=== PATIENT | female | born 1940 | race Caucasian/White ===

== ENCOUNTER → 2017-07-12 | Day surgery (SDC) | payer OTHER ==
[2017-07-05 11:50] VITALS: BMI 39.0
--- NOTE | 2017-07-05 12:47 | PAT Medication Instructions ---
Service Date Jul 05, 2017. Current Home Medication List Albuterol Hfa (Ventolin Hfa), 2 PUFFS INH Q4H PRN for RN Alprazolam (Xanax), 0.25 MG PO BID PRN for RN Amlodipine (Norvasc), 5 MG PO QAM Calcium Acetate (Phoslo 667 Mg), 1 CAP PO WM Cholecalciferol (Vitamin D3), 1,000 UNITS PO QAM Clobetasol Propionate (Clobetasol Propionate Cream 0.05%), 1 APPLN EXT BID PRN for RN Fluoxetine (Prozac), 40 MG PO BID PRN for RN Furosemide (Lasix), 80 MG PO QAM Glipizide (Glipizide Er), 1 TAB PO QAM Home O2 Therapy (Oxygen), 3 LITERS NA CONT Levothyroxine Sodium (Levothyroxine Sodium), 1 TAB PO QAM Levothyroxine Sodium (Synthroid), 300 MCG PO QAM Nitroglycerin (Nitrostat), 0.4 MG UT PRN Ondansetron Hcl (Zofran), 4 MG PO DAILY PRN for N Pantoprazole (Protonix), 40 MG PO QAM Polyethylene Glycol 3350 (Miralax), 17 GM PO PRN Rosuvastatin Calcium (Crestor), 2.5 MG PO 3XWK Senna (Senna Lax), 8.6 MG PO BID PRN for PRN Triamcinolone Acet (Triamcinolone Acetonide), 1 APPLN TOP BID Urea (Urea Topical), 1 DOSE TOP DAILY PRN for RN Vitamin B Cmplx/Vitc/Folic Ac (Nephrocaps), 1 CAP PO QAM [Procrit], 1 DOSE INJ PRN Medication Instructions For Your Scheduled Surgery -Continue as directed: Home O2 Therapy (Oxygen), 3 LITERS NA CONT [Procrit], 1 DOSE INJ PRN Nitroglycerin (Nitrostat), 0.4 MG UT PRN - Hold the following medications 24 hours prior to surgery: Clobetasol Propionate (Clobetasol Propionate Cream 0.05%), 1 APPLN EXT BID PRN Triamcinolone Acet (Triamcinolone Acetonide), 1 APPLN TOP BID Urea (Urea Topical), 1 DOSE TOP DAILY PRN for RN - Hold the following medications the morning of surgery: Cholecalciferol (Vitamin D3), 1,000 UNITS PO QAM Calcium Acetate (Phoslo 667 Mg), 1 CAP PO WM Furosemide (Lasix), 80 MG PO QAM Glipizide (Glipizide Er), 1 TAB PO QAM Rosuvastatin Calcium (Crestor), 2.5 MG PO 3XWK (take Tuesday/Tuesday/Tuesday as usual) Polyethylene Glycol 3350 (Miralax), 17 GM PO PRN Senna (Senna Lax), 8.6 MG PO BID PRN for PRN Vitamin B Cmplx/Vitc/Folic Ac (Nephrocaps), 1 CAP PO QAM - Take the following medications the morning of surgery with a sip of water: Albuterol Hfa (Ventolin Hfa), 2 PUFFS INH Q4H PRN (use if needed, BRING WITH YOU DAY OF SURGERY) Alprazolam (Xanax), 0.25 MG PO BID PRN Amlodipine (Norvasc), 5 MG PO QAM Levothyroxine Sodium (Levothyroxine Sodium), 75MCG 1 TAB PO QAM Levothyroxine Sodium (Synthroid), 300 MCG PO QAM Ondansetron Hcl (Zofran), 4 MG PO DAILY PRN Pantoprazole (Protonix), 40 MG PO QAM Fluoxetine (Prozac), 40 MG PO BID PRN (if needed) - Take the following medications as scheduled the night before surgery: Fluoxetine (Prozac), 40 MG PO BID PRN (if needed) Alprazolam (Xanax), 0.25 MG PO BID PRN Albuterol Hfa (Ventolin Hfa), 2 PUFFS INH Q4H PRN If you have any questions please call us at [phone] or [phone] or [phone]
[2017-07-05 13:21] LABS: PARTIAL THROMBOPLASTIN RATIO 1.4; PROTHROMBIN TIME (PATIENT) 10.7 SECONDS (9.0-12.0)
[2017-07-05 13:23] LABS: BUN/CREATININE RATIO 7.7 (10-20); CREATININE 4.1 mg/dl (0.60-1.20); POTASSIUM 4.6 mmol/L (3.5-5.1)
[2017-07-05 13:33] LABS: BASO % 0.3 %; BASO ABS # 0.02 K/uL (0-0.2); COMPLETE YES; EOS % 4.4 %; HEMATOCRIT 32.5 % (37-47); IG% 0.2 %; LYMPH % 7.9 %; LYMPH ABS # 0.47 K/uL (1.2-3.4); MEAN CELL VOLUME 105.2 fL (80-100); MEAN CORPUSCULAR HEMOGLOBIN 31.4 pg (25-34); MEAN CORPUSCULAR HGB CONC 29.8 g/dl (32-36); MEAN PLATELET VOLUME 9.3 fL (7.4-10.4); MONO % 5.4 %; NEUT % 81.8 %; PLATELET COUNT 115 K/uL (130-400); RED BLOOD COUNT 3.09 M/uL (4.2-5.4); WHITE BLOOD COUNT 5.95 K/uL (4.8-10.8)
--- NOTE | 2017-07-05 13:38 | DIAGNOSTIC IMAGING REPORT ---
CHEST PREADMISSION(PA/LAT) CLINICAL HISTORY: PAT preoperative evaluation COMPARISON STUDY: 10/20/2015 FINDINGS: Interstitial change left base considered chronic. Pulmonary vasculature again somewhat prominent on a chronic basis. Mild cardiomegaly status post median sternotomy. IMPRESSION: Chronic and postoperative change. No acute process. The above report was generated using voice recognition software. It may contain grammatical, syntax or spelling errors. Electronically signed by: Trevor Camejo M.D. 07/05/2017 1:37 PM Dictated Date/Time: 07/05/2017 1:36 PM
[~2017-07-12] VITALS: Ht 160 cm; Wt 100.1 kg
[~2017-07-12] MED LIST: ALPR-411 PO; AMLO-110 PO; ATROPINE SULFATE 0.1 MG/ML 5ML SYR IV PRN; B-CO1CAP17 PO; BUPIVACAINE/EPINEPHRINE 0.5% MPF 1:200,000 30 ML VIAL ONE; CALC667C4 PO; CHOL1CAP57 PO; CLBCRM30 EXT; CLINDAMYCIN 600 MG/54 ML D5W IV SCH; EpHEDrine SULFATE INJ 50 MG/ML AMP IV PRN; FENTANYL CITRATE INJ 50 MCG/1 ML 2 ML VIAL ONE; FLUO40CA8 PO; FURO80TA63 PO; GELATIN SPONGE 12-7MM ONE; GLIP-199 PO; HEPARIN SOD (PORCINE) 1000 UNIT/ML 10 ML VIAL ONE; LEVO300T2 PO; LEVO75TA5 PO; LIDOCAINE HCL 1% 20 ML VIAL ONE; MIDAZOLAM HCL 1 MG/ML 2ML VIAL ONE; NITR0.4S UT; NURSING VERBAL MED ORDER ONE; ONDA4TAB46 PO; ONDANSETRON INJ 2 MG/ML 2 ML VIAL IV PRN; OXGN; OXYC-57 PO; OXYCODONE/ACETAMINOPHEN 5-325 TAB ONE; PANT1TAB48 PO; POLY335019 PO; PROCRIT INJ; PROPOFOL IV EMULSION 10 MG/ML 20 ML VIAL IV ONE; ROSU5TAB PO; SNK PO; SODIUM CHLORIDE 0.9% 1000ML 1,000 ML IV SCH; THROMBIN FOR SOLN 20000 UNIT KIT ONE; TRMCR515 TOP; VNTHFA/IN INH; [UNRECOGNIZED DRUG - CODE] TOP
--- NOTE | 2017-07-12 05:53 | History and Physical ---
History & Physical Date of Service Jul 12, 2017. History & Physical CC: End stage renal disease HPI: Mrs. Mccarthy states that she has had worsening renal function over the past 2 years and was recently told at a visit with her transfer engineer that she should probably have a fistula created in the likelihood that she will require dialysis sometime in the future. She had a left arm basilic vein fistula created and a transposition of the fistula. USN did show an area of stenosis and non maturation of the fistula. She is now admitted for a left upper arm prosthetic graft. She specifically denies headaches, fevers, chills, dizziness , chest pain, shortness of breath, hemoptysis, abdominal pain, nausea, vomiting , diarrhea, constipation, dysuria, hematuria, rest pain, claudication, nonhealing wounds or ulceration. She is currently wheelchair bound and does not ambulate so was not able to claudicate. ALLERGIES: INCLUDE ASPIRIN AND PENICILLIN. MEDICATIONS: Reconciled on the chart and include the following: acetaminophen/ hydrocodone, alprazolam, amlodipine, clobetasol, clopidogrel, fluoxetine, glipizide, levothyroxine, Nitrostat, ondansetron, pantoprazole, sodium polystyrene sulfonate, torsemide, triamcinolone topical, urea topical, and vitamin D3. PAST MEDICAL HISTORY: Positive for coronary artery disease, diabetes, carotid disease, kidney disease as well as hypothyroidism, gastroesophageal reflux disease, [place], anxiety. SURGICAL HISTORY: Positive for a section, cholecystectomy, back surgery, shoulder surgery, hysterectomy, coronary artery bypass graft x4, right carotid artery sten. FAMILY HISTORY: Positive for diabetes in her mother and father, heart disease in her sister. SOCIAL HISTORY: Positive for current history of tobacco use. The patient states she smokes 1 pack a day. She does not drink alcohol or do illicit drugs. REVIEW OF SYSTEMS: Positive for chronic fatigue and difficulty with ambulation as well as mild bilateral lower extremity edema and requiring oxygen on a daily regular basis, is negative for fevers, sweats, vision changes, photophobia, ear pain, sinus problems or sore throat, hemoptysis, cough, shortness of breath while on her usual oxygen. She denies chest pain or palpitations. She denies syncope, abdominal pain, nausea, vomiting, diarrhea, constipation, dysuria, hematuria, muscle weakness, headaches, dizziness, numbness or seizures. PHYSICAL EXAMINATION: Her vital signs today were as follows: Blood pressure 130/60 in the right arm, 138/62 in the left, heart rate of 74, oxygenation 95% on 2 liters. Constitutional: In general, the patient is a morbidly obese, chronically ill-appearing middle-aged female in no acute distress. She is non- ambulatory and is in a wheelchair. She does transfer. She is active, alert and oriented x4 with normal recent and remote memory. Her head is normocephalic and atraumatic. Her eyes are EOMI. Her ENIL exam demonstrates no hearing loss, rhinorrhea or pharyngeal erythema. Her neck is supple, nontender with the midline trachea without masses or crepitus. Her lung exam demonstrates no dyspnea. They are decreased throughout, but are clear to auscultation bilaterally. A cardiovascular exam demonstrates a nondisplaced apical impulse with a regular rate and rhythm without murmurs, lifts, heaves, thrills or gallops. Her peripheral pulses are full and equal in all extremities unless otherwise noted. Specifically, they are normal in her carotid, brachial, radial, and ulnar. Her femoral pulses are +2. Her distal pulses are +1. She has brisk capillary refill and no sign of distal ischemia. The patient demonstrates no bruits in her carotid, abdominal or femoral area. Abdomen is soft, nontender with normoactive bowel sounds in all 4 quadrants without guarding or rebound. There is no flank or CVA tenderness. Her musculoskeletal exam demonstrates normal tone and strength for age. Her bilateral upper extremities demonstrate no cyanosis, edema, varicosities or ulcers. The patient's bilateral lower extremities still demonstrate +1 pitting edema and skin changes consistent with chronic venous insufficiency. There are no ulcerations and no cyanosis or gangrene. Neurologically, the patient has grossly intact cranial nerves and grossly intact sensation. ASSESSMENT AND PLAN: End-stage renal disease, not on hemodialysis. PLAN: Patient is admitted for a left upper extremity prosthetic fistula creation. I have discussed the risks options and benefits of the procedure with the patient. The patient understands the risks options and benefits and agrees to the procedure.
[2017-07-12 09:53] VITALS: BP 119/55; PULSE 72; TEMP 36.5; O2SAT 94; Ht 160 cm; Wt 100.1 kg
--- NOTE | 2017-07-12 10:12 | History & Physical Bridge Note ---
H&P Re-Evaluation Bridge Note: I have examined the patient, reviewed the History & Physical and in the interval since the performance of the History & Physical I have noted the following changes of clinical significance: No changes noted
[2017-07-12 10:23] LABS: BUN/CREATININE RATIO 6.9 (10-20); CALCIUM 9.1 mg/dl (8.5-10.1); CREATININE 4.3 mg/dl (0.60-1.20); POTASSIUM 4.7 mmol/L (3.5-5.1)
--- NOTE | 2017-07-12 12:44 | [facility] Post Operative Brief Note ---
Immediate Operative Summary Operative Date Jul 12, 2017. Pre-Operative Diagnosis End-stage Renal Disease Post-Operative Diagnosis Same as preop Procedure(s) Performed Left Upper Extremity Prosthetic Arteriovenous Graft Surgeon Dr. Aaron Owner Manager Surgeon(s) Claritza Perrin MD Resident Estimated Blood Loss 40ML Findings good thrill Specimens None per surgeon Anesthesia MAC Complication(s) None Disposition Recovery Room / PACU
--- NOTE | 2017-07-12 12:49 | Discharge Instructions ---
Discharge Instructions Date of Service Jul 12, 2017. Visit Reason for Visit: End Stage Renal Disease -On Hemodialysis Discharge Discharge Diagnosis / Problem: End stage renal disease Discharge Goals Goal(s): Therapeutic intervention Activity Recommendations Activity Limitations: per Instructions/Follow-up section Anesthesia . Post Anesthesia Instructions: If you have had General Anesthesia or IV Sedation: * Do not drive today. * Resume driving when surgeon permits. * Do not make important decisions or sign legal documents today. * Call surgeon for: 1. Temperature elevations greater than 101 degrees F. 2. Uncontrollable pain. 3. Excessive bleeding. 4. Persistent nausea and vomiting. 5. Medication intolerance (nausea, vomiting or rash). * For nausea and vomiting use only clear liquids such as: tea, soda, bouillon until nausea subsides, then gradually increase diet as tolerated. * If you have any concerns or questions, call your surgeon's office. If physician is unavailable and it is an emergency, call 911 or go to the nearest emergency room. . Instructions / Follow-Up Instructions / Follow-Up Call [phone] to schedule a follow up appointment if one not already scheduled. ACTIVITY RECOMMENDATIONS: See Above SPECIAL CARE INSTRUCTIONS: Call your doctor if: * Temperature above 101 degrees * Pain not relieved by pain medicine ordered * There is increased drainage or redness from any incision * You have any unanswered questions or concerns. Diet Recommendations Recommended Home Diet: resume previous diet Procedures Procedures Performed: Left Upper Extremity Prosthetic Arteriovenous Graft Pending Studies Studies pending at discharge: no Medical Emergencies . Who to Call and When: Medical Emergencies: If at any time you feel your situation is an emergency, please call 911 immediately. . Non-Emergent Contact Non-Emergency issues call your: Surgeon . . "Provider Documentation" section prepared by Jonny Aaron. .
[2017-07-12] MEDS: FENTANYL CITRATE INJ 50 MCG/1 ML 2 ML VIAL IV PRN ×2 (13:14→13:25)
--- NOTE | 2017-07-12 13:41 | Anesthesiology Progress Note ---
Anesthesia Post Op Note Date & Time Jul 12, 2017 at 13:41 Vital Signs Pain Intensity: 4 Vital Signs Past 12 Hours Date Time Temp Pulse Resp B/P (MAP) Pulse Ox O2 Delivery O2 Flow Rate FiO2 07/12/17 13:35 77 15 119/41 92 Nasal Cannula 3 07/12/17 13:25 73 13 127/72 92 Nasal Cannula 3 07/12/17 13:15 76 20 134/52 95 Nasal Cannula 3 07/12/17 13:08 36.8 78 12 146/40 95 Nasal Cannula 4 07/12/17 09:53 36.5 72 18 119/55 (76) 94 Room Air Notes Mental Status: alert / awake / arousable, participated in evaluation Pt Amnestic to Procedure: Yes Nausea / Vomiting: adequately controlled Pain: adequately controlled Airway Patency, RR, SpO2: stable & adequate BP & HR: stable & adequate Hydration State: stable & adequate Anesthetic Complications: no major complications apparent
[2017-07-12 14:10] VITALS: BP 134/71; PULSE 77; TEMP 36.7; O2SAT 92
[2017-07-12 14:40] VITALS: BP 109/70; PULSE 78; O2SAT 96
[2017-07-12 15:10] VITALS: BP 133/61; PULSE 76; TEMP 36.9; O2SAT 94
--- NOTE | 2017-07-12 15:44 | OPERATIVE REPORT ---
DATE OF OPERATION: 07/12/2017 PREOPERATIVE DIAGNOSIS: End-stage renal disease on hemodialysis. POSTOPERATIVE DIAGNOSIS: Same. PROCEDURE: Left brachial axillary AV graft with 6 mm PTFE. SURGEON: Dr. Jonny Aaron. STORE PERSON: Dr. Laurie Perrin. ANESTHESIA: Local plus conscious sedation. FLUIDS: 300. ESTIMATED BLOOD LOSS: 40 mL. URINE OUTPUT: Not recorded. COMPLICATIONS: None apparent. CONDITION: Stable to PACU. INDICATIONS: Ms. Mccarthy is a 77-year-old female with end-stage renal disease on hemodialysis. She had a previous left brachiocephalic and brachiobasilic fistula that unfortunately fell. She presents today for placement of a left upper extremity AV graft. She was advised of the risk and benefits of the procedure and agreed to undergo the procedure. DESCRIPTION OF PROCEDURE: The patient was brought into the operative suite. She was prepped and draped in the usual fashion. A timeout occurred. Local was instilled over her brachial artery in her forearm just above her antecubital fossa. The brachial artery was then dissected out. Next, attention was turned to her upper arm. Local was instilled and incision was made in her proximal left upper arm and the axillary vein was identified and dissected out. Local was instilled in the upper arm and the tunneler was used to tunnel a 6 mm PTFE graft to both incisions. The venous anastomosis was performed first. Angled DeBakeys were applied to the proximal and distal axillary vein. An arteria was made with a #11 blade. The anastomosis was created using a running CV-6 suture. At this time, there was no significant backbleeding, so a 4-0 Paul balloon was passed distally. This passed easily through the anastomosis and eliane back easily. There was blood returned after drawback of the balloon. Next, attention was turned to the arterial anastomosis. An arteriotomy was made with an 11 blade and this was extended with Benton scissors. The graft was cut down to size and sewn in with a running CV-6 suture. This was inspected for hemostasis. A repair stitch was placed. Once this was placed in the graft, attention was turned to the venous anastomosis which was inspected for hemostasis. A repair suture was placed in the proximal end of this anastomosis. This was done with the 7-0 Prolene. There was a good thrill in the graft. The wounds were inspected for hemostasis. Once this was obtained, they were closed with 3-0 and 4-0 Vicryl suture. The patient was then transported to PACU in stable condition. She tolerated the procedure well. Dr. Jonny Aaron was present and scrubbed for the entirety of this case. I attest to the content of the Intraoperative Record and any orders documented therein. Any exceptions are noted below. I, Dr. Aaron was present and scrubbed for the entire procedure. CINDY
== END | disposition home or self-care (01) ==
LOC: C.ACU 09:20
PROVIDERS: ATTEND Surgery Vascular Surgery
DX: N18.6 End stage renal disease (principal); I25.10 Atherosclerotic heart disease of native coronary artery without angina pectoris; E11.9 Type 2 diabetes mellitus without complications; E03.9 Hypothyroidism, unspecified; K21.9 Gastro-esophageal reflux disease without esophagitis; F17.200 Nicotine dependence, unspecified, uncomplicated; I25.2 Old myocardial infarction; Z99.2 Dependence on renal dialysis; Z90.49 Acquired absence of other specified parts of digestive tract; Z90.710 Acquired absence of both cervix and uterus; Z83.3 Family history of diabetes mellitus; Z82.49 Family history of ischemic heart disease and other diseases of the circulatory system

== ENCOUNTER → 2017-08-18 | Day surgery (SDC) | payer OTHER ==
[~2017-08-18] VITALS: Ht 165.1 cm; Wt 100.0 kg
[~2017-08-18] MED LIST changes: -ATROPINE SULFATE 0.1 MG/ML 5ML SYR IV PRN; -BUPIVACAINE/EPINEPHRINE 0.5% MPF 1:200,000 30 ML VIAL ONE; -CLINDAMYCIN 600 MG/54 ML D5W IV SCH; -EpHEDrine SULFATE INJ 50 MG/ML AMP IV PRN; -FENTANYL CITRATE INJ 50 MCG/1 ML 2 ML VIAL ONE; -GELATIN SPONGE 12-7MM ONE; -HEPARIN SOD (PORCINE) 1000 UNIT/ML 10 ML VIAL ONE; -LIDOCAINE HCL 1% 20 ML VIAL ONE; -MIDAZOLAM HCL 1 MG/ML 2ML VIAL ONE; -NURSING VERBAL MED ORDER ONE; -ONDANSETRON INJ 2 MG/ML 2 ML VIAL IV PRN; -OXYCODONE/ACETAMINOPHEN 5-325 TAB ONE; -PROPOFOL IV EMULSION 10 MG/ML 20 ML VIAL IV ONE; -SODIUM CHLORIDE 0.9% 1000ML 1,000 ML IV SCH; -THROMBIN FOR SOLN 20000 UNIT KIT ONE
[2017-08-18 11:39] VITALS: BP 149/63; PULSE 77; TEMP 36.7; O2SAT 97; Ht 165.1 cm; Wt 100.0 kg
--- NOTE | 2017-08-18 12:59 | History and Physical ---
History & Physical Date of Service Aug 18, 2017. History & Physical CC: End stage renal disease, functioning fistula HPI: Mrs. Mccarthy states that she has had worsening renal function over the past 2 years and was recently told at a visit with her director operating room that she should probably have a fistula created in the likelihood that she will require dialysis sometime in the future. She had a left arm basilic vein fistula created and a transposition of the fistula. USN did show an area of stenosis and non maturation of the fistula. She then had a left upper arm graft placed. This is working nicely. She specifically denies headaches, fevers, chills, dizziness, chest pain, shortness of breath, hemoptysis, abdominal pain, nausea, vomiting, diarrhea, constipation, dysuria, hematuria, rest pain, claudication, nonhealing wounds or ulceration. She is currently wheelchair bound and does not ambulate so was not able to claudicate. ALLERGIES: INCLUDE ASPIRIN AND PENICILLIN. MEDICATIONS: Reconciled on the chart and include the following: acetaminophen/ hydrocodone, alprazolam, amlodipine, clobetasol, clopidogrel, fluoxetine, glipizide, levothyroxine, Nitrostat, ondansetron, pantoprazole, sodium polystyrene sulfonate, torsemide, triamcinolone topical, urea topical, and vitamin D3. PAST MEDICAL HISTORY: Positive for coronary artery disease, diabetes, carotid disease, kidney disease as well as hypothyroidism, gastroesophageal reflux disease, [place], anxiety. SURGICAL HISTORY: Positive for a section, cholecystectomy, back surgery, shoulder surgery, hysterectomy, coronary artery bypass graft x4, right carotid artery sten. FAMILY HISTORY: Positive for diabetes in her mother and father, heart disease in her sister. SOCIAL HISTORY: Positive for current history of tobacco use. The patient states she smokes 1 pack a day. She does not drink alcohol or do illicit drugs. REVIEW OF SYSTEMS: Positive for chronic fatigue and difficulty with ambulation as well as mild bilateral lower extremity edema and requiring oxygen on a daily regular basis, is negative for fevers, sweats, vision changes, photophobia, ear pain, sinus problems or sore throat, hemoptysis, cough, shortness of breath while on her usual oxygen. She denies chest pain or palpitations. She denies syncope, abdominal pain, nausea, vomiting, diarrhea, constipation, dysuria, hematuria, muscle weakness, headaches, dizziness, numbness or seizures. PHYSICAL EXAMINATION: Her vital signs today were as follows: Blood pressure 130/60 in the right arm, 138/62 in the left, heart rate of 74, oxygenation 95% on 2 liters. Constitutional: In general, the patient is a morbidly obese, chronically ill-appearing middle-aged female in no acute distress. She is non- ambulatory and is in a wheelchair. She does transfer. She is active, alert and oriented x4 with normal recent and remote memory. Her head is normocephalic and atraumatic. Her eyes are EOMI. Her ENIL exam demonstrates no hearing loss, rhinorrhea or pharyngeal erythema. Her neck is supple, nontender with the midline trachea without masses or crepitus. Her lung exam demonstrates no dyspnea. They are decreased throughout, but are clear to auscultation bilaterally. A cardiovascular exam demonstrates a nondisplaced apical impulse with a regular rate and rhythm without murmurs, lifts, heaves, thrills or gallops. Her peripheral pulses are full and equal in all extremities unless otherwise noted. Specifically, they are normal in her carotid, brachial, radial, and ulnar. Her femoral pulses are +2. Her distal pulses are +1. She has brisk capillary refill and no sign of distal ischemia. The patient demonstrates no bruits in her carotid, abdominal or femoral area. Abdomen is soft, nontender with normoactive bowel sounds in all 4 quadrants without guarding or rebound. There is no flank or CVA tenderness. Her musculoskeletal exam demonstrates normal tone and strength for age. Her bilateral upper extremities demonstrate no cyanosis, edema, varicosities or ulcers. Good thrill in left arm fistula. The patient's bilateral lower extremities still demonstrate +1 pitting edema and skin changes consistent with chronic venous insufficiency. There are no ulcerations and no cyanosis or gangrene. Neurologically, the patient has grossly intact cranial nerves and grossly intact sensation. ASSESSMENT AND PLAN: End-stage renal disease, functioning fistula PLAN: Patient is admitted for removal of her permcath. I have discussed the risks options and benefits of the procedure with the patient. The patient understands the risks options and benefits and agrees to the procedure.
== END | disposition home or self-care (01) ==
LOC: C.ACU 10:39
PROVIDERS: ATTEND Surgery Vascular Surgery
DX: E11.22 Type 2 diabetes mellitus with diabetic chronic kidney disease (principal); N18.6 End stage renal disease; Z99.2 Dependence on renal dialysis; I25.10 Atherosclerotic heart disease of native coronary artery without angina pectoris; I25.2 Old myocardial infarction; I65.21 Occlusion and stenosis of right carotid artery; E03.9 Hypothyroidism, unspecified; K21.9 Gastro-esophageal reflux disease without esophagitis; F41.9 Anxiety disorder, unspecified; F17.210 Nicotine dependence, cigarettes, uncomplicated; Z95.1 Presence of aortocoronary bypass graft; Z79.899 Other long term (current) drug therapy

== ENCOUNTER 2017-09-12 07:42 | Day surgery (SDC) | payer OTHER ==
[~2017-09-12] VITALS: Ht 165.1 cm; Wt 100.0 kg
--- NOTE | 2017-09-12 06:28 | History and Physical ---
History & Physical Date of Service Sep 12, 2017. History & Physical CC: End stage renal disease, functioning fistula HPI: Mrs. Mccarthy states that she has had worsening renal function over the past 2 years and was recently told at a visit with her shore hand dredge or barge that she should probably have a fistula created in the likelihood that she will require dialysis sometime in the future. She had a left arm basilic vein fistula created and a transposition of the fistula. USN did show an area of stenosis and non maturation of the fistula. She then had a left upper arm graft placed. This is working nicely. She specifically denies headaches, fevers, chills, dizziness, chest pain, shortness of breath, hemoptysis, abdominal pain, nausea, vomiting, diarrhea, constipation, dysuria, hematuria, rest pain, claudication, nonhealing wounds or ulceration. She is currently wheelchair bound and does not ambulate so was not able to claudicate. ALLERGIES: INCLUDE ASPIRIN AND PENICILLIN. MEDICATIONS: Reconciled on the chart and include the following: acetaminophen/ hydrocodone, alprazolam, amlodipine, clobetasol, clopidogrel, fluoxetine, glipizide, levothyroxine, Nitrostat, ondansetron, pantoprazole, sodium polystyrene sulfonate, torsemide, triamcinolone topical, urea topical, and vitamin D3. PAST MEDICAL HISTORY: Positive for coronary artery disease, diabetes, carotid disease, kidney disease as well as hypothyroidism, gastroesophageal reflux disease, [place], anxiety. SURGICAL HISTORY: Positive for a section, cholecystectomy, back surgery, shoulder surgery, hysterectomy, coronary artery bypass graft x4, right carotid artery sten. FAMILY HISTORY: Positive for diabetes in her mother and father, heart disease in her sister. SOCIAL HISTORY: Positive for current history of tobacco use. The patient states she smokes 1 pack a day. She does not drink alcohol or do illicit drugs. REVIEW OF SYSTEMS: Positive for chronic fatigue and difficulty with ambulation as well as mild bilateral lower extremity edema and requiring oxygen on a daily regular basis, is negative for fevers, sweats, vision changes, photophobia, ear pain, sinus problems or sore throat, hemoptysis, cough, shortness of breath while on her usual oxygen. She denies chest pain or palpitations. She denies syncope, abdominal pain, nausea, vomiting, diarrhea, constipation, dysuria, hematuria, muscle weakness, headaches, dizziness, numbness or seizures. PHYSICAL EXAMINATION: Her vital signs today were as follows: Blood pressure 130/60 in the right arm, 138/62 in the left, heart rate of 74, oxygenation 95% on 2 liters. Constitutional: In general, the patient is a morbidly obese, chronically ill-appearing middle-aged female in no acute distress. She is non- ambulatory and is in a wheelchair. She does transfer. She is active, alert and oriented x4 with normal recent and remote memory. Her head is normocephalic and atraumatic. Her eyes are EOMI. Her ENWI exam demonstrates no hearing loss, rhinorrhea or pharyngeal erythema. Her neck is supple, nontender with the midline trachea without masses or crepitus. Her lung exam demonstrates no dyspnea. They are decreased throughout, but are clear to auscultation bilaterally. A cardiovascular exam demonstrates a nondisplaced apical impulse with a regular rate and rhythm without murmurs, lifts, heaves, thrills or gallops. Her peripheral pulses are full and equal in all extremities unless otherwise noted. Specifically, they are normal in her carotid, brachial, radial, and ulnar. Her femoral pulses are +2. Her distal pulses are +1. She has brisk capillary refill and no sign of distal ischemia. The patient demonstrates no bruits in her carotid, abdominal or femoral area. Abdomen is soft, nontender with normoactive bowel sounds in all 4 quadrants without guarding or rebound. There is no flank or CVA tenderness. Her musculoskeletal exam demonstrates normal tone and strength for age. Her bilateral upper extremities demonstrate no cyanosis, edema, varicosities or ulcers. Good thrill in left arm fistula. The patient's bilateral lower extremities still demonstrate +1 pitting edema and skin changes consistent with chronic venous insufficiency. There are no ulcerations and no cyanosis or gangrene. Neurologically, the patient has grossly intact cranial nerves and grossly intact sensation. ASSESSMENT AND PLAN: End-stage renal disease, functioning fistula PLAN: Patient is admitted for removal of her permcath. I have discussed the risks options and benefits of the procedure with the patient. The patient understands the risks options and benefits and agrees to the procedure.
[2017-09-12 08:31] VITALS: BP 146/48; PULSE 69; TEMP 36.8; O2SAT 96; Ht 165.1 cm; Wt 100.0 kg
[2017-09-12] MEDS ORDERED: FENTANYL CITRATE INJ 50 MCG/1 ML 2 ML VIAL ONE (10:36)
[2017-09-12] MEDS ORDERED: LIDOCAINE HCL 1% 20 ML VIAL ONE (10:36)
[2017-09-12] MEDS ORDERED: MIDAZOLAM HCL 1 MG/ML 2ML VIAL ONE (10:36)
[2017-09-12] MEDS ORDERED: LIDOCAINE HCL 1% 20 ML VIAL SQ ONE (10:59)
--- NOTE | 2017-09-12 11:00 | [facility] Operative Report ---
Operative Report Operative Date Sep 12, 2017. Pre-Operative Diagnosis Functioning Fistula Post-Operative Diagnosis Same Procedure(s) Performed Removal of Perm Catheter Surgeon Dr. Aaron Director Of Global Marketing Surgeon(s) None Estimated Blood Loss 0 Findings catheter and cuff removed Specimens A: Explant Perm Catheter Anesthesia Local Complication(s) None Disposition Indications This is a 77-year-old female with a left internal jugular vein PermCath in place. Her fistula is functioning wel. Removal of the PermCath was recommended. I have discussed the risks options and benefits of the procedure with the patient. The patient understands the risks options and benefits and agrees to the procedure. Description of Procedure The patient was taken to the angio suite and placed in the supine position. The left side of the neck, chest wall and catheter were prepped and draped in a sterile manner. Local anesthesia was then accomplished. Using sharp and blunt dissection, the cuff of the permcath was freed up from the surrounding fibrous tissue. The permcath and cuff were completely removed. Pressure was then applied and adequate hemostasis was obtained. A sterile dressing was then applied. The patient left the angio suite in good condition and tolerated the procedure well. I attest to the content of the Intraoperative Record and any orders documented therein. Any exceptions are noted below.
--- NOTE | 2017-09-12 11:04 | Discharge Instructions ---
Discharge Instructions Date of Service Sep 12, 2017. Visit Reason for Visit: End Stage Renal Disease -Functioning Fistula Discharge Discharge Diagnosis / Problem: Functioning fistula Discharge Goals Goal(s): Therapeutic intervention Activity Recommendations Activity Limitations: per Instructions/Follow-up section Shower/Bathe: tomorrow Anesthesia . Post Anesthesia Instructions: If you have had General Anesthesia or IV Sedation: * Do not drive today. * Resume driving when surgeon permits. * Do not make important decisions or sign legal documents today. * Call surgeon for: 1. Temperature elevations greater than 101 degrees F. 2. Uncontrollable pain. 3. Excessive bleeding. 4. Persistent nausea and vomiting. 5. Medication intolerance (nausea, vomiting or rash). * For nausea and vomiting use only clear liquids such as: tea, soda, bouillon until nausea subsides, then gradually increase diet as tolerated. * If you have any concerns or questions, call your surgeon's office. If physician is unavailable and it is an emergency, call 911 or go to the nearest emergency room. . Instructions / Follow-Up Instructions / Follow-Up Call [phone] with any questions or concerns. May remove dressing tomorrow, replace if needed with gauze or band-aid May shower tomorrow SPECIAL CARE INSTRUCTIONS: Medications: * Continue to take your medications as directed. If you have been given a prescription for Plavix, please fill it immediately and take as directed. Incision Care: * Your puncture site may have some bruising and minor swelling for about one week. * You will have a small dressing covering your puncture site. You may remove the dressing after 24 hours and shower. You may let the warm soapy water run over it, but be sure to dry the puncture site well and keep it dry. * DO NOT IMMERSE THE INCISION IN A TUB/POOL/etc. UNTIL HEALED. * Puncture sites should be kept covered with a band-aid until it begins to heal. Restrictions: * Depending on whether you leg or arm was punctured to access the arteries, you will be required to lay flat, hold your arm still, or both, for about 4 hours after the procedure to prevent bleeding. * Limit your activity for the first 48 hours. You may walk and go up and down steps. Avoid excessive bending or movement at the puncture site. Possible Complications: * Excessive Swelling - after blood flow is improved you may notice increased swelling in the lower legs. This is a normal response. This usually depends on the amount of blockages in the leg, how long they have been there prior to your procedure and how much blood flow was restored. Elevating your legs will help to improve this. Please notify our office ([phone] ) if the swelling does not go away after lying in bed overnight. * Infection/Drainage/Bleeding - Drainage or bleeding from the puncture site should be minimal. If you have excessive bleeding or drainage, call our office ([phone]) right away. * Pain - You may experience some mild pain or soreness at your puncture site. If your pain does not improve, please contact our office ([phone]). Call your doctor and seek emergent treatment if you develop: * Temperature above 101 degrees * Any fever or chills * Any redness or purulent drainage from the puncture site * Any new dusky/blue colored toes or feet with coolness or sharp or aching pain. SKIN IRRITATION: * You may experience some redness and/or swelling in the area where radiation was administered. If any skin irritation occurs, please contact your family physician. FOLLOW UP VISIT: Keep any scheduled doctor appointments. Diet Recommendations Recommended Home Diet: resume previous diet Procedures Procedures Performed: Removal of Perm Catheter Pending Studies Studies pending at discharge: no Medical Emergencies . Who to Call and When: Medical Emergencies: If at any time you feel your situation is an emergency, please call 911 immediately. . Non-Emergent Contact Non-Emergency issues call your: Surgeon . . "Provider Documentation" section prepared by Jonny Aaron. .
[2017-09-12 11:10] VITALS: BP 166/71; PULSE 69; TEMP 36.7; O2SAT 96
[2017-09-12 11:25] VITALS: BP 175/68; PULSE 73; TEMP 36.7; O2SAT 93
== END 2017-09-12 11:40 | disposition home or self-care (01) ==
LOC: C.ACU 07:42
PROVIDERS: ATTEND Surgery Vascular Surgery
DX: N18.6 End stage renal disease (principal); E11.22 Type 2 diabetes mellitus with diabetic chronic kidney disease; Z99.2 Dependence on renal dialysis; I25.10 Atherosclerotic heart disease of native coronary artery without angina pectoris; I25.2 Old myocardial infarction; E03.9 Hypothyroidism, unspecified; F41.9 Anxiety disorder, unspecified; Z79.899 Other long term (current) drug therapy; F17.210 Nicotine dependence, cigarettes, uncomplicated

== ENCOUNTER 2019-11-23 23:31 | Inpatient (IN) ==
[2019-11-24 00:49] LABS: Eosinophils # (auto) 0.03 K/uL (0-0.5); Eosinophils % (auto) 0.3 %; Hematocrit (blood only) 34.1 % (37-47); Hemoglobin 10.9 g/dL (12.0-16.0); Immature Granulocytes # (auto) 0.04 K/uL (0.00-0.02); Immature Granulocytes % (auto) 0.4 %; Lymphocytes % (auto) 4.4 %; Mean Corpuscular Hemoglobin 31.1 pg (25-34); Mean Corpuscular Volume 97.2 fL (80-100); Mean Platelet Volume 10.7 fL (7.4-10.4); Monocytes # (auto) 0.47 K/uL (0.11-0.59); Monocytes % (auto) 5.2 %; Neutrophils # (auto) 8.15 K/uL (1.4-6.5); Neutrophils % (auto) 89.7 %; Platelet Count 129 K/uL (130-400); RDW Coefficient of Variation 18.2 % (11.5-14.5); RDW Standard Deviation 63.3 fL (36.4-46.3); Red Blood Count 3.51 M/uL (4.2-5.4); White Blood Count 9.09 K/uL (4.8-10.8)
[2019-11-24 00:57] LABS: Albumin Globulin Ratio 0.5 (0.9-2); Albumin Level 2.1 gm/dl (3.4-5.0); BUN Creatinine Ratio 12.1 (10-20); Bilirubin,Total 0.5 mg/dl (0.2-1); Calcium 7.1 mg/dl (8.5-10.1); Creatinine Clr Calc Pharmacy 9.2 ml/min; Est GFR (African American) 7.3; Est GFR (Non-African American) 6.3; Globulin 3.9 gm/dl (2.5-4.0); Magnesium 1.9 mg/dl (1.8-2.4); Potassium 3.9 mmol/L (3.5-5.1)
[2019-11-24] MEDS ORDERED: ALBUT/IPRATROP 3MG/0.5MG NEB 3 ML VIAL NEB STA (01:19)
[2019-11-24] MEDS ORDERED: HYDROmorphone INJ 0.5 MG/0.5 ML SYR IV STA ×2 (01:31→03:12)
[2019-11-24] MEDS ORDERED: FUROSEMIDE 40 MG/4 ML VIAL IV STA (01:31)
[2019-11-24] MEDS ORDERED: ERTAPENEM SODIUM 10 ML IV STA (01:33)
[2019-11-24] MEDS ORDERED: ISOSORBIDE MONO EXTENDED REL 30 MG TABCR PO ONE (02:16)
[2019-11-24] MEDS ORDERED: HydrALAZINE HCL 20 MG/ML VIAL IV ONE (02:41)
[2019-11-24 03:16] LABS: Thyroid Stimulating Hormone 1.61 uIu/ml (0.300-4.500)
--- NOTE | 2019-11-24 03:29 | History & Physical Report ---
Date of Service November 24, 2019 Assessment & Plan (1) Respiratory failure, acute and chronic: hx chronic respiratory failure secondary to COPD on home O2 Multifactorial : Fluid overload, recent PRBC transfusion, missed dialysis session, hx ESRD on HD Recurrent COPD exacerbation secondary to HCAP, possible aspiration, no sepsis (Recent confinement at [facility] for CF exacerbation secondary to flu pneumonia) chronic left hip pain, worsening with cough symptoms HTN, elevated secondary illness history CAD status post CABG, stent PVD status post surgery NAFLD cirrhosis as per records, no overt decompensation DM2 diet-controlled,well-controlled as of recent outpatient hemoglobin A1c of 4.29 April 2019 hypothyroidism, euthyroid as of today's TSH chronic anemia, hemoglobin at baseline recent PRBC posttransfusion chronic thrombocytopenia 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 Past tobacco abuse PCU Supplemental O2 Baseline ABG Nephrology consult RE dialysis management (ER provider already in touch hold recommends dialysis in a.m.) Lasix dosed for renal function, one-time dose in light of pulmonary congestion (patient still dribbles urine as per account) Ertapenem, nebs, steroid course for COPD exacerbation secondary to H CAP/possible aspiration Swallow eval, aspiration precautions Analgesia, Lidoderm patch for left hip pain given radiculopathy description Facilitate home BP meds, consider adding Norvasc if BP persistently elevated Basal insulin, ISS BG goal [id number], update hemoglobin A1c DVT prophylaxis. SCDs RE thrombocytopenia Full code Total critical care time was 45 minutes. History of Present Illness Chief Complaint: Worsening shortness of breath Primary Care Provider: Trey Guzman DO History obtained from patient and records. History somewhat limited due to patient hearing impairment. Medical history significant for chronic respiratory failure secondary to COPD on home O2, history CAD status post CABG, stent, PVD status post surgery, NAFLD cirrhosis as per records, DM2 diet-controlled, ESRD on HD, hypothyroidism, chronic anemia (baseline hemoglobin 8 ), chronic thrombocytopenia, anxiety/mood disorder, chronic left hip pain. Recent confinement [facility] last week for COPD exacerbation secondary to influenza A. Patient discharged to [facility] rehab facility 3 days ago. Outpatient hemoglobin noted to be 6 s/p PRBC transfusion upon arrival at rehab facility. As per patient, worsening shortness of breath since leaving [facility]. Junky cough symptoms, coughing with meals/water intake if she is not careful. No fever, no chills. Worsening left-sided hip pain going to the leg No unusual incontinence symptoms. Hemodialysis not completed yesterday morning due to infiltrated AV fistula site. Patient brought to the ER for worsening shortness of breath. Medical History as above Surgical History : CABG, vascular procedures, cholecystectomy, shoulder surgery, back surgery, LOUISA/BSO, section Family History : Personal/Social history : Allergies Allergy/AdvReac Type Severity Reaction Status Date / Time Penicillins Allergy Unknown SWELLING Verified 11/23/19 23:53 AT INJECTION SITE telithromycin Allergy Unknown reaction Verified 11/23/19 23:53 unknown aspirin AdvReac Unknown NAUSEATED Verified 11/23/19 23:53 WITH UNCOATED-COATED OKAY Food Allergy Unknown RAW Uncoded 11/23/19 23:53 [id number] OKAY Home Medications Home Medications Medication Instructions Recorded Confirmed Type acetaminophen 650 mg PO Q4H PRN 11/21/19 11/23/19 History acetylcysteine 3 ml INHALATION BID 11/21/19 11/23/19 History albuterol sulfate [Proventil HFA] 2 puff INHALATION Q4H PRN 11/21/19 11/23/19 History atorvastatin [Lipitor] 10 mg PO HS 11/21/19 11/23/19 History ergocalciferol (vitamin D2) 50,000 unit PO 2XWK 11/21/19 11/24/19 History fluticasone furoate-vilanterol 1 inh INHALATION DAILY 11/21/19 11/24/19 History [Breo Ellipta] heparin (porcine) 5,000 unit SUBCUT Q12H 11/21/19 11/24/19 History hydrocortisone [Proctozone-HC] 1 applic ND BID 11/21/19 11/24/19 History isosorbide mononitrate 30 mg PO DAILY 11/21/19 11/24/19 History prednisone 20 mg PO DAILY 11/21/19 11/24/19 History alprazolam 0.25 mg PO BID PRN 11/23/19 11/23/19 History bisacodyl 10 mg ND DAILY PRN 11/23/19 11/23/19 History calcium acetate 667 mg PO TIDM 11/23/19 11/24/19 History oxycodone-acetaminophen [Percocet] 1 tab PO Q8H PRN 11/23/19 11/23/19 History cholecalciferol (vitamin D3) 1,000 unit PO DAILY 11/24/19 11/24/19 History [Vitamin D3] clobetasol 1 applic TOPICAL BID 11/24/19 11/24/19 History darbepoetin gregoria in polysorbat 100 mcg SUBCUT DIRECTED 11/24/19 11/24/19 His tory docusate sodium 100 mg PO BID 11/24/19 11/24/19 History fluoxetine [Prozac] 40 mg PO DAILY 11/24/19 11/24/19 History levothyroxine 75 mcg PO DAILY 11/24/19 11/24/19 History levothyroxine 300 mcg PO DAILY 11/24/19 11/24/19 History lidocaine 1 applic TOPICAL DIRECTED 11/24/19 11/24/19 History multivitamin 1 tab PO DAILY 11/24/19 11/24/19 History nitroglycerin 0.4 mg SUBLINGUAL DIRECTED PRN 11/24/19 11/24/19 History ondansetron HCl [Zofran] 4 mg PO Q6H PRN 11/24/19 11/24/19 History pantoprazole 40 mg PO DAILY 11/24/19 11/24/19 History polyethylene glycol 3350 [Miralax] 17 g PO DAILY PRN 11/24/19 11/24/19 History roflumilast [Daliresp] 500 mcg PO DAILY 11/24/19 11/24/19 History rosuvastatin 2.5 mg PO DIRECTED 11/24/19 11/24/19 History sennosides-docusate sodium 1 tab-cap PO DIRECTED 11/24/19 11/24/19 History [Senokot-S] triamcinolone acetonide 1 applic TOPICAL BID 11/24/19 11/24/19 History urea 1 applic TOPICAL BID 11/24/19 11/24/19 History Past Med/Surg History Medical History Anxiety AV fistula left AV fistula CAD (coronary artery disease) COPD exacerbation Diabetes 1.5, managed as type 2 Encounter for insertion of venous access port ESRD (end stage renal disease) Dialysis patient GERD (gastroesophageal reflux disease) Hepatitis C chronic condition Hypertension goal is 140/90 Hypothyroidism Influenza A Diagnosed 11/13/2019 Mixed dyslipidemia Obesity, BMI not known Old myocardial infarction Oxygen dependent 2 liters nasal cannula Pneumonia Pt is unaware of this diagnosis. Info provided from [facility] Stress incontinence in female Tobacco abuse Surgical History H/O arthroscopy of shoulder Removal of object right shoulder H/O dilation and curettage H/O: Hx of cholecystectomy Hx of decompressive lumbar laminectomy S/P LOUISA-BSO Family History Other Family history non-contributory Social History Preferred Language: Wallisian Communication Ability: Effective Digital Sales Planner Required: No Beliefs That Will Affect Care: None Current Living Situation: Spouse Other Information That Helps Us Care for You: No Feels Safe at Home: Yes Safety Concerns: Feels Safe At This Time Smoking Status: Unknown if ever smoked Hx Alcohol Use: No Hx Substance Use: No Review of Systems Review of Systems: As per HPI, all 10 systems reviewed, all other ROS negative Physical Exam Physical Exam: GENERAL: uncomfortable, obese, respiratory distress SKIN: Pallor , warm HEENT: Pale palpebral conjunctivae, no ptosis, dry buccal mucosa, nasal cannula in place NECK : Supple, short neck, no tenderness CHEST : Decreased breath sounds, expiratory wheezes , no tenderness HEART : RRR, no obvious murmurs ABDOMEN: Some distention, nontender BACK : Left hip tenderness, negative straight leg raise test EXTREMITIES : Minimal LE swelling, no LE tenderness, no other conspicuous deformities noted NEUROLOGIC : Coherent, slightly hard of hearing, no facial asymmetry, no other gross focality Results & Data Vital Signs (Past 12 Hours) Vital Signs Temp Pulse Pulse Resp BP BP Pulse Ox 11/24/19 03:04 103 H 24 155/52 H 93 11/24/19 02:30 91 H 19 198/104 H 94 11/24/19 01:37 96 H 18 91 11/24/19 01:23 102 H 24 167/92 H 93 11/23/19 23:23 36.7 C 91 H 26 H 141/44 H 94 Laboratory Results Laboratory Results WBC 9.09 K/uL (4.8-10.8) 11/24/19 00:18 RBC 3.51 M/uL (4.2-5.4) L 11/24/19 00:18 Hgb 10.9 g/dL (12.0-16.0) L 11/24/19 00:18 Hct 34.1 % (37-47) L 11/24/19 00:18 MCV 97.2 fL (80-100) 11/24/19 00:18 MCH 31.1 pg (25-34) 11/24/19 00:18 MCHC 32.0 g/dL (32-36) 11/24/19 00:18 RDW Std Deviation 63.3 fL (36.4-46.3) H 11/24/19 00:18 RDW Coeff of Alvin 18.2 % (11.5-14.5) H 11/24/19 00:18 Plt Count 129 K/uL (130-400) L 11/24/19 00:18 MPV 10.7 fL (7.4-10.4) H 11/24/19 00:18 Immature Gran % (Auto) 0.4 % 11/24/19 00:18 Neut % (Auto) 89.7 % 11/24/19 00:18 Lymph % (Auto) 4.4 % 11/24/19 00:18 [place] % (Auto) 5.2 % 11/24/19 00:18 Eos % (Auto) 0.3 % 11/24/19 00:18 Baso % (Auto) 0.0 % 11/24/19 00:18 Immature Gran # (Auto) 0.04 K/uL (0.00-0.02) H 11/24/19 00:18 Neut # (Auto) 8.15 K/uL (1.4-6.5) H 11/24/19 00:18 Lymph # (Auto) 0.40 K/uL (1.2-3.4) L 11/24/19 00:18 [place] # (Auto) 0.47 K/uL (0.11-0.59) 11/24/19 00:18 Eos # (Auto) 0.03 K/uL (0-0.5) 11/24/19 00:18 Baso # (Auto) 0.00 K/uL (0-0.2) 11/24/19 00:18 Sodium 135 mmol/L (136-145) L 11/24/19 00:18 Potassium 3.9 mmol/L (3.5-5.1) 11/24/19 00:18 Chloride 103 mmol/L (98-107) 11/24/19 00:18 Carbon Dioxide 20 mmol/L (21-32) L 11/24/19 00:18 Anion Gap 12.0 (3-11) H 11/24/19 00:18 BUN 71 mg/dl (7-18) H 11/24/19 00:18 Creatinine 5.92 mg/dl (0.6-1.2) H* 11/24/19 00:18 Est Cr Clr Drug Dosing 9.2 ml/min 11/24/19 00:18 Est GFR ( Amer) 7.3 11/24/19 00:18 Est GFR (Non-Af Amer) 6.3 11/24/19 00:18 BUN/Creatinine Ratio 12.1 (10-20) 11/24/19 00:18 Glucose 152 mg/dl (70-99) H 11/24/19 00:18 Calcium 7.1 mg/dl (8.5-10.1) L 11/24/19 00:18 Phosphorus 5.0 mg/dl (2.5-4.9) H 11/24/19 00:18 Magnesium 1.9 mg/dl (1.8-2.4) 11/24/19 00:18 Total Bilirubin 0.5 mg/dl (0.2-1) 11/24/19 00:18 AST 15 U/L (15-37) 11/24/19 00:18 ALT 15 U/L (12-78) 11/24/19 00:18 Alkaline Phosphatase 79 U/L (45-117) 11/24/19 00:18 Total Protein 6.0 gm/dl (6.4-8.2) L 11/24/19 00:18 Albumin 2.1 gm/dl (3.4-5.0) L 11/24/19 00:18 Globulin 3.9 gm/dl (2.5-4.0) 11/24/19 00:18 Albumin/Globulin Ratio 0.5 (0.9-2) L 11/24/19 00:18 Lipase 192 U/L (73-393) 11/24/19 00:18 TSH 1.610 uIu/ml (0.300-4.500) 11/24/19 00:18 Diagnostic Findings Chest x-ray as per my interpretation congestion, infiltrate right EKG as per my interpretation : Rate 90, NSR,, LAD, LAFB, RBBB, LVH
[2019-11-24] MEDS: LIDOCAINE 5% 1 PATCH TD SCH (03:49)
[2019-11-24] MEDS ORDERED: CARBOHYDRATES FOR HYPOGLYCEMIA PO PRN (04:23)
[2019-11-24] MEDS ORDERED: GLUCOSE 40% GEL 15 GM TUBE PO PRN (04:23)
[2019-11-24] MEDS ORDERED: INSULIN GLARGINE SOLOSTAR 100 UNITS/ML 3 ML PEN SC STA (04:23)
[2019-11-24] MEDS ORDERED: GLUCAGON FOR INJ 1 MG VIAL SQ PRN (04:23)
[2019-11-24] MEDS ORDERED: bisacodyL 10 MG SUPP PR PRN (04:23)
[2019-11-24] MEDS ORDERED: DEXTROSE 50% 50 ML SYRINGE IV PRN (04:23)
[2019-11-24] MEDS ORDERED: GLUCOSE 10 TABS/TUBE PO PRN (04:23)
[2019-11-24] MEDS ORDERED: ALPRAZolam 0.25 MG TABLET PO PRN (04:23)
[2019-11-24] MEDS ORDERED: NITROGLYCERIN SL 0.4 MG/TAB TAB SL PRN (04:23)
[2019-11-24] MEDS ORDERED: POLYETHYLENE (MIRALAX) 17 GM PACK PO PRN (04:23)
[2019-11-24] MEDS ORDERED: PROMETHAZINE HCL 12.5 MG in SODIUM CHLORIDE 0.9% 50 ML IV PRN (04:23)
[2019-11-24] MEDS: MAGNESIUM SULFATE / D5W 1 GM/100 ML BAG IV SCH ×2 (05:07→06:10)
[2019-11-24] MEDS: LEVOTHYROXINE SODIUM 150 MCG TABLET PO SCH (05:36)
[2019-11-24] MEDS: LEVOTHYROXINE SODIUM 75 MCG TABLET PO SCH (05:36)
[2019-11-24] MEDS: INSULIN ASPART 100 UNITS/ML 3 ML PEN SC SCH ×4 (05:37→20:53)
[2019-11-24] MEDS ORDERED: methylPREDNISolone 20 MG in SYRINGE 0 ML IV STA (05:50)
[2019-11-24 06:01] LABS: Troponin I 0.024 ng/ml (0-0.045)
[2019-11-24 06:31] LABS: Estimated Average Glucose 140 mg/dl; Hemoglobin A1C 6.5 % (4.5-5.6)
[2019-11-24] MEDS: IPRATROPIUM BROMIDE NEB SOLN 0.02% 2.5 ML VIAL INH SCH ×4 (06:58→19:00)
[2019-11-24] MEDS: LEVALBUTEROL 1.25MG/0.5ML NEB INH SCH ×4 (06:58→19:00)
[2019-11-24] MEDS: ACETYLCYSTEINE 20% INHAL SOLN 30ML***DISPENSED BY RESP. INH SCH ×2 (06:59→19:00)
[2019-11-24] MEDS ORDERED: XOPENEX/ATROVENT 1.25mg/0.5MG NEB COMBO NEB SCH (07:00)
--- NOTE | 2019-11-24 08:06 | XRay Report ---
XR chest 1V portable HISTORY: Shortness of breath. COMPARISON: Chest 07/05/2017. FINDINGS: The heart is mildly enlarged. There are poststernotomy changes. There is right greater than left interstitial vascular thickening consistent with pulmonary edema. There is also patchy right ba silar airspace opacities. No pneumothorax. No pleural effusions. IMPRESSION: 1. Cardiomegaly with asymmetric pulmonary edema. 2. Patchy right basilar densities may represent a component of the pulmonary edema or superimposed pn eumonia. ACT 112: Negative or not required by law. Electronically signed by: Edgar Brito M.D. 11/24/2019 8:04 AM
[2019-11-24] MEDS: CALCIUM ACETATE 667 MG CAP PO SCH ×3 (08:39→16:52)
--- NOTE | 2019-11-24 08:39 | CT Scan Report ---
LUMBAR SPINE CT CT DOSE: 712.25 mGy.cm HISTORY: worsening back pain TECHNIQUE: Multiaxial CT images of the lumbar spine were performed and reformatted in the sagittal an d coronal plane without the use of contrast. A dose lowering technique was utilized adhering to the principles of ALARA. COMPARISON: Abdominal CT 01/08/2010.. FINDINGS: There is a 2.6 cm left adrenal gland nodule. A 2.1 cm hypodense lesion within the left kidn ey. Paraspinal soft tissues are unremarkable. Posterior decompression at L5-S1. [id number]-yx-[id number] cent ral canal narrowing at L4-L5 due to broad-based posterior disc bulge and ligamentum and facet hypertr ophy. Patchy bibasilar densities are noted. There is severe disc space narrowing at L4-5 and L5-S1. M oderate to severe facet degenerative changes within the lower lumbar spine. No fracture or subluxatio n within the lumbar spine. IMPRESSION: 1. No fractures within the lumbar spine. 2. Degenerative and postoperative changes as described above. 3. Stable 2.6 cm left adrenal gland nodule. ACT 112: Negative or not required by law. Electronically signed by: Edgar Brito M.D. 11/24/2019 8:38 AM
[2019-11-24] MEDS: FLUTICASONE/VILANTEROL 100/25MCG 14 PUFFS/INHALER INH SCH (08:40)
[2019-11-24] MEDS: FLUOXETINE HCL 20 MG CAP PO SCH (08:40)
[2019-11-24] MEDS ORDERED: HEPARIN 100 UNIT/ML 5ML FLUSH ONE (08:40)
[2019-11-24] MEDS: PANTOprazole 40 MG TAB PO SCH (08:40)
[2019-11-24] MEDS: MULTIVITAMIN TAB PO SCH (08:40)
[2019-11-24] MEDS: CHOLECALCIFEROL 1,000 UNITS 25 MCG TAB PO SCH (08:40)
[2019-11-24] MEDS: ROFLUMILAST 500 MCG TAB PO SCH (08:40)
[2019-11-24] MEDS: DOCUSATE SODIUM 100 MG CAP PO SCH ×2 (08:40→20:52)
[2019-11-24] MEDS ORDERED: predniSONE 20 MG TAB PO SCH (09:00)
[2019-11-24] MEDS ORDERED: HEPARIN SOD (PORCINE) 1000 UNIT/ML 10 ML VIAL IV ONE (09:15)
[2019-11-24] MEDS ORDERED: SODIUM CHLORIDE 0.9% 1000ML 1,000 ML IV PRN (09:15)
[2019-11-24] MEDS: ACETAMINOPHEN 325 MG TAB PO PRN ×2 (09:44→14:17)
--- NOTE | 2019-11-24 10:11 | Nephrology Consultation ---
Date of Consultation November 24, 2019 Assessment & Plan (1) ESRD (end stage renal disease) on dialysis: Patient with ESRD on dialysis Tuesday. Last full dialysis was on . Dialysis was attempted yesterday but her AV fistula infiltrated. Her electrolytes are stable. Main problem is volume overload. We will do 3 hours of isolated UF today with net UF of 5 L. Next dialysis will be on Tuesday. (2) Dyspnea: Patient with dyspnea likely due to pulmonary edema. Chest x-ray was reported as pulmonary vascular congestion and cardiomegaly. Patient with recent influenza but no signs of pneumonia on imaging. Will aggressively diurese her with target UF of 5 L today. 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 Recommend dietitian consultation. Patient should be on a high protein diet. Recommend protein supplements History of Present Illness Reason for Consultation: ESRD complicated by acute respiratory failure Requesting Physician: Ector Durant MD Attending Physician: Ector Durant MD History of Present Illness This is 79-year-old female with history of COPD and end-stage renal disease on dialysis Tuesday at [facility] who was admitted on 11/23/2019 with acute respiratory failure. Patient was recently hospitalized for influenza. She was then sent to [facility] rehab. While there she was noted to have anemia with hemoglobin of 6.8. She was sent to [facility] for blood transfusion and received 2 units of blood. On return to rehab she has been short of breath due to fluid overload. She had dialysis on and dialysis was again attempted on Tuesday but her AV fistula infiltrated. Patient was transferred to hospital due to worsening shortness of breath. This morning she feels a little better. She is on oxygen by nasal cannula. No vomiting or diarrhea. She complains of leg swelling. Patient was initially seen in her room in the morning during consultation. I later returned to see the patient while on dialysis. Patient was seen and examined while on dialysis. Allergies Allergy/AdvReac Type Severity Reaction Status Date / Time Penicillins Allergy Unknown SWELLING Verified 11/23/19 23:53 AT INJECTION SITE telithromycin Allergy Unknown reaction Verified 11/23/19 23:53 unknown aspirin AdvReac Unknown NAUSEATED Verified 11/23/19 23:53 WITH UNCOATED-COATED OKAY Food Allergy Unknown RAW Uncoded 11/23/19 23:53 [id number] OKAY Home Medications Home Medications Medication Instructions Recorded Confirmed Type acetaminophen 650 mg PO Q4H PRN 11/21/19 11/23/19 History acetylcysteine 3 ml INHALATION BID 11/21/19 11/23/19 History albuterol sulfate [Proventil HFA] 2 puff INHALATION Q4H PRN 11/21/19 11/23/19 History atorvastatin [Lipitor] 10 mg PO HS 11/21/19 11/23/19 History ergocalciferol (vitamin D2) 50,000 unit PO 2XWK 11/21/19 11/24/19 History fluticasone furoate-vilanterol 1 inh INHALATION DAILY 11/21/19 11/24/19 History [Breo Ellipta] heparin (porcine) 5,000 unit SUBCUT Q12H 11/21/19 11/24/19 History hydrocortisone [Proctozone-HC] 1 applic MA BID 11/21/19 11/24/19 History isosorbide mononitrate 30 mg PO DAILY 11/21/19 11/24/19 History prednisone 20 mg PO DAILY 11/21/19 11/24/19 History alprazolam 0.25 mg PO BID PRN 11/23/19 11/23/19 History bisacodyl 10 mg MA DAILY PRN 11/23/19 11/23/19 History calcium acetate 667 mg PO TIDM 11/23/19 11/24/19 History oxycodone-acetaminophen [Percocet] 1 tab PO Q8H PRN 11/23/19 11/23/19 History cholecalciferol (vitamin D3) 1,000 unit PO DAILY 11/24/19 11/24/19 History [Vitamin D3] clobetasol 1 applic TOPICAL BID 11/24/19 11/24/19 History darbepoetin gregoria in polysorbat 100 mcg SUBCUT DIRECTED 11/24/19 11/24/19 History docusate sodium 100 mg PO BID 11/24/19 11/24/19 History fluoxetine [Prozac] 40 mg PO DAILY 11/24/19 11/24/19 History levothyroxine 75 mcg PO DAILY 11/24/19 11/24/19 History levothyroxine 300 mcg PO DAILY 11/24/19 11/24/19 History lidocaine 1 applic TOPICAL DIRECTED 11/24/19 11/24/19 History multivitamin 1 tab PO DAILY 11/24/19 11/24/19 History nitroglycerin 0.4 mg SUBLINGUAL DIRECTED PRN 11/24/19 11/24/19 History ondansetron HCl [Zofran] 4 mg PO Q6H PRN 11/24/19 11/24/19 History pantoprazole 40 mg PO DAILY 11/24/19 11/24/19 History polyethylene glycol 3350 [Miralax] 17 g PO DAILY PRN 11/24/19 11/24/19 History roflumilast [Daliresp] 500 mcg PO DAILY 11/24/19 11/24/19 History rosuvastatin 2.5 mg PO DIRECTED 11/24/19 11/24/19 History sennosides-docusate sodium 1 tab-cap PO DIRECTED 11/24/19 11/24/19 History [Senokot-S] triamcinolone acetonide 1 applic TOPICAL BID 11/24/19 11/24/19 History urea 1 applic TOPICAL BID 11/24/19 11/24/19 History Patient History Medical History Anxiety AV fistula left AV fistula CAD (coronary artery disease) COPD exacerbation Diabetes 1.5, managed as type 2 Encounter for insertion of venous access port ESRD (end stage renal disease) Dialysis patient GERD (gastroesophageal reflux disease) Hepatitis C chronic condition Hypertension goal is 140/90 Hypothyroidism Influenza A Diagnosed 11/13/2019 Mixed dyslipidemia Obesity, BMI not known Old myocardial infarction Oxygen dependent 2 liters nasal cannula Pneumonia Pt is unaware of this diagnosis. Info provided from [facility] Stress incontinence in female Tobacco abuse Surgical History H/O arthroscopy of shoulder Removal of object right shoulder H/O dilation and curettage H/O: Hx of cholecystectomy Hx of decompressive lumbar laminectomy S/P LOUISA-BSO Family History Other Family history non-contributory Social History Preferred Language: Yi Communication Ability: Effective Recruiter Coordinator Required: No Beliefs That Will Affect Care: None Current Living Situation: Spouse Other Information That Helps Us Care for You: No Feels Safe at Home: Yes Safety Concerns: Feels Safe At This Time Smoking Status: Unknown if ever smoked Hx Alcohol Use: No Hx Substance Use: No Review of Systems Review of Systems: All systems reviewed & are unremarkable except as noted in HPI & below Physical Exam Physical Exam: General exam: Appears comfortable, no acute distress HEENT: Pupils are equal and reactive to light Neck: No JVD, neck is supple trachea is midline Respiratory system: Crackles bilaterally. Gastrointestinal: Abdomen is soft, non distended, non tender, bowel sounds are present CVS: Regular rate and rhythm. No murmurs, rubs or gallops Musculoskeletal: No joint or muscle tenderness Extremities: Non tender, 2+ edema, peripheral pulses are present Neuro: Oriented, no tremors, no focal neurological deficits Skin: No rashes Access: Left upper arm AV fistula with good bruit and bruising Results & Data Vital Signs (Past 12 Hours) Vital Signs Temp Pulse Pulse Pulse Resp BP BP 11/24/19 06:59 67 18 11/24/19 06:45 37.0 C 72 19 153/57 H 11/24/19 05:15 84 11/24/19 04:45 36.6 C 94 H 22 158/71 H 11/24/19 04:02 93 H 24 130/31 L 11/24/19 03:32 98 H 24 125/35 L 11/24/19 03:04 103 H 24 155/52 H 11/24/19 02:30 91 H 19 198/104 H 11/24/19 01:37 96 H 18 11/24/19 01:23 102 H 24 167/92 H 11/23/19 23:23 36.7 C 91 H 26 H 141/44 H Pulse Ox 11/24/19 06:59 98 11/24/19 06:45 97 11/24/19 05:15 11/24/19 04:45 93 11/24/19 04:02 94 11/24/19 03:32 93 11/24/19 03:04 93 11/24/19 02:30 94 11/24/19 01:37 91 11/24/19 01:23 93 11/23/19 23:23 94 Laboratory Results Laboratory Results - last 24 hr 0211/24/19 11/24/19 00:18 00:18 00:18 WBC 9.09 RBC 3.51 L Hgb 10.9 L Hct 34.1 L MCV 97.2 MCH 31.1 MCHC 32.0 RDW Std Deviation 63.3 H RDW Coeff of Alvin 18.2 H Plt Count 129 L MPV 10.7 H Immature Gran % (Auto) 0.4 Neut % (Auto) 89.7 Lymph % (Auto) 4.4 Gordon % (Auto) 5.2 Eos % (Auto) 0.3 Baso % (Auto) 0.0 Immature Gran # (Auto) 0.04 H Neut # (Auto) 8.15 H Lymph # (Auto) 0.40 L Gordon # (Auto) 0.47 Eos # (Auto) 0.03 Baso # (Auto) 0.00 Sodium 135 L Potassium 3.9 Chloride 103 Carbon Dioxide 20 L Anion Gap 12.0 H BUN 71 H Creatinine 5.92 H* Est Cr Clr Drug Dosing 9.2 Est GFR ( Amer) 7.3 Est GFR (Non-Af Amer) 6.3 BUN/Creatinine Ratio 12.1 Glucose 152 H POC Glucose Estimat Average Glucose 140 Hemoglobin A1c 6.5 H Calcium 7.1 L Phosphorus 5.0 H Magnesium 1.9 Total Bilirubin 0.5 AST 15 ALT 15 Alkaline Phosphatase 79 Troponin I 0.024 Total Protein 6.0 L Albumin 2.1 L Globulin 3.9 Albumin/Globulin Ratio 0.5 L Lipase 192 TSH 1.610 Nasal Screen MRSA (PCR) Hep Bs Antigen Hep Bs Antibody Hep Bs Antibody, Quant 11/24/19 11/24/19 11/24/19 05:33 07:29 09:26 WBC RBC Hgb Hct MCV MCH MCHC RDW Std Deviation RDW Coeff of Alvin Plt Count MPV Immature Gran % (Auto) Neut % (Auto) Lymph % (Auto) Gordon % (Auto) Eos % (Auto) Baso % (Auto) Immature Gran # (Auto) Neut # (Auto) Lymph # (Auto) Gordon # (Auto) Eos # (Auto) Baso # (Auto) Sodium Potassium Chloride Carbon Dioxide Anion Gap BUN Creatinine Est Cr Clr Drug Dosing Est GFR ( Amer) Est GFR (Non-Af Amer) BUN/Creatinine Ratio Glucose POC Glucose 250 H 278 H Estimat Average Glucose Hemoglobin A1c Calcium Phosphorus Magnesium Total Bilirubin AST ALT Alkaline Phosphatase Troponin I Total Protein Albumin Globulin Albumin/Globulin Ratio Lipase TSH Nasal Screen MRSA (PCR) Hep Bs Antigen Pending Hep Bs Antibody Pending Hep Bs Antibody, Quant Pending 11/24/19 Unknown WBC RBC Hgb Hct MCV MCH MCHC RDW Std Deviation RDW Coeff of Alvin Plt Count MPV Immature Gran % (Auto) Neut % (Auto) Lymph % (Auto) Gordon % (Auto) Eos % (Auto) Baso % (Auto) Immature Gran # (Auto) Neut # (Auto) Lymph # (Auto) Gordon # (Auto) Eos # (Auto) Baso # (Auto) Sodium Potassium Chloride Carbon Dioxide Anion Gap BUN Creatinine Est Cr Clr Drug Dosing Est GFR ( Amer) Est GFR (Non-Af Amer) BUN/Creatinine Ratio Glucose POC Glucose Estimat Average Glucose Hemoglobin A1c Calcium Phosphorus Magnesium Total Bilirubin AST ALT Alkaline Phosphatase Troponin I Total Protein Albumin Globulin Albumin/Globulin Ratio Lipase TSH Nasal Screen MRSA (PCR) Negative Hep Bs Antigen Hep Bs Antibody Hep Bs Antibody, Quant (1) Dyspnea Dyspnea type: shortness of breath Qualified Code(s): R06.02 - Shortness of breath
[2019-11-24] MEDS: HYDROmorphone INJ 0.5 MG/0.5 ML SYR IV PRN ×2 (10:22→14:58)
[2019-11-24 10:24] LABS: Hepatitis B Surface Ab Quant < 3.10 mIU/mL (>or=10mIU/mL Immune); Hepatitis B Surface Antibody Non-Immune
[2019-11-24 10:35] LABS: Hepatitis B Surface Antigen Neg (Neg)
[2019-11-24] MEDS: OXYCODONE/ACETAMINOPHEN 5mg/325mg TAB PO PRN ×2 (12:30→21:03)
[2019-11-24] MEDS: HEPARIN SOD (PORCINE) 1000 UNIT/ML 10 ML VIAL IV SCH ×2 (14:42→14:43)
[2019-11-24] MEDS: GABAPENTIN 100 MG CAP PO SCH ×2 (14:44→20:52)
[2019-11-24] MEDS ORDERED: ATORVASTATIN 10 MG TAB PO SCH (21:00)
--- NOTE | 2019-11-24 21:51 | Electrocardiogram Report ---
Test Reason : Blood Pressure : / mmHG Vent. Rate : 089 BPM Atrial Rate : 089 BPM P-R Int : 222 ms QRS Dur : 128 ms QT Int : 410 ms P-R-T Axes : 083 -62 060 degrees QTc Int : 498 ms Poor data quality, interpretation may be adversely affected Sinus rhythm with sinus arrhythmia with 1st degree A-V block Premature atrial complexes Left axis deviation Right bundle branch block Moderate voltage criteria for LVH, may be normal variant Abnormal ECG When compared with ECG of 20-OCT-2015 12:51, Questionable change in QRS axis ST now depressed in Anterior leads T wave inversion now evident in Anterior leads Confirmed by Parth Mata ([id number]) on 11/24/2019 9:51:21 PM Referred By: REFERRED SELF Confirmed By:Parth Mata
[2019-11-24] MEDS ORDERED: ERTAPENEM SODIUM 500 MG in SODIUM CHLORIDE 0.9% 50 ML IV SCH (22:00)
[2019-11-25] MEDS ORDERED: HEPARIN 100 UNIT/ML 5ML FLUSH FLUSH PRN (00:11)
[2019-11-25] MEDS: IPRATROPIUM BROMIDE NEB SOLN 0.02% 2.5 ML VIAL INH SCH ×3 (00:51→13:29)
[2019-11-25] MEDS: LEVALBUTEROL 1.25MG/0.5ML NEB INH SCH ×3 (00:51→13:29)
[2019-11-25] MEDS: LEVOTHYROXINE SODIUM 150 MCG TABLET PO SCH (05:10)
[2019-11-25] MEDS: LEVOTHYROXINE SODIUM 75 MCG TABLET PO SCH (05:10)
[2019-11-25] MEDS ORDERED: ERTAPENEM CONSULT ACTIVE PRN (05:53)
[2019-11-25 06:38] LABS: Eosinophils # (auto) 0.08 K/uL (0-0.5); Eosinophils % (auto) 0.7 %; Hematocrit (blood only) 27.6 % (37-47); Hemoglobin 8.6 g/dL (12.0-16.0); Immature Granulocytes # (auto) 0.04 K/uL (0.00-0.02); Immature Granulocytes % (auto) 0.4 %; Lymphocytes # (auto) 0.32 K/uL (1.2-3.4); Lymphocytes % (auto) 2.9 %; Mean Corpuscular Hemoglobin 30.2 pg (25-34); Mean Corpuscular Hgb Conc 31.2 g/dL (32-36); Mean Corpuscular Volume 96.8 fL (80-100); Mean Platelet Volume 10.4 fL (7.4-10.4); Monocytes # (auto) 0.85 K/uL (0.11-0.59); Monocytes % (auto) 7.7 %; Neutrophils # (auto) 9.76 K/uL (1.4-6.5); Neutrophils % (auto) 88.3 %; Platelet Count 132 K/uL (130-400); RDW Coefficient of Variation 18.1 % (11.5-14.5); RDW Standard Deviation 64.4 fL (36.4-46.3); Red Blood Count 2.85 M/uL (4.2-5.4); White Blood Count 11.05 K/uL (4.8-10.8)
[2019-11-25] MEDS: ACETYLCYSTEINE 20% INHAL SOLN 30ML***DISPENSED BY RESP. INH SCH (06:49)
[2019-11-25 07:26] LABS: BUN Creatinine Ratio 11.7 (10-20); Calcium 8.3 mg/dl (8.5-10.1); Creatinine Clr Calc Pharmacy 6.1 ml/min; Est GFR (African American) 4.7; Est GFR (Non-African American) 4.1; Potassium 5.1 mmol/L (3.5-5.1)
[2019-11-25] MEDS: FLUTICASONE/VILANTEROL 100/25MCG 14 PUFFS/INHALER INH SCH (08:22)
[2019-11-25] MEDS: CHOLECALCIFEROL 1,000 UNITS 25 MCG TAB PO SCH (08:23)
[2019-11-25] MEDS: PANTOprazole 40 MG TAB PO SCH (08:24)
[2019-11-25] MEDS: CALCIUM ACETATE 667 MG CAP PO SCH ×2 (08:24→11:44)
[2019-11-25] MEDS: FLUOXETINE HCL 20 MG CAP PO SCH (08:25)
[2019-11-25] MEDS: ROFLUMILAST 500 MCG TAB PO SCH (08:25)
[2019-11-25] MEDS: GABAPENTIN 100 MG CAP PO SCH (08:26)
[2019-11-25] MEDS: DOCUSATE SODIUM 100 MG CAP PO SCH (08:27)
[2019-11-25] MEDS: MULTIVITAMIN TAB PO SCH (08:27)
[2019-11-25] MEDS: INSULIN ASPART 100 UNITS/ML 3 ML PEN SC SCH ×2 (08:28→11:41)
[2019-11-25] MEDS ORDERED: ISOSORBIDE MONO EXTENDED REL 30 MG TABCR PO SCH (09:00)
[2019-11-25] MEDS ORDERED: INSULIN GLARGINE SOLOSTAR 100 UNITS/ML 3 ML PEN SC SCH (09:00)
[2019-11-25] MEDS ORDERED: predniSONE 20 MG TAB PO SCH (09:00)
--- NOTE | 2019-11-25 09:23 | Emergency Department Note ---
Entered by Tomasz Selby acting as a scribe for History of Present Illness General Chief complaint: Shortness of Breath/Dyspnea Stated complaint: shortness of breath Time Seen by Provider: 11/23/19 23:32 Source: patient and EMS History of Present Illness Provider complaint: Shortness of breath Onset (ago): hour(s) (This afternoon) Location: chest Severity: similar to prior episodes Pain Consistency: + constant Relieved By: + none Associated symptoms: + cough; no nausea/vomiting The patient is a 79 year old female who presents to the Emergency Room with complaints of constant shortness of breath that started this afternoon. Per EMS, the patient has a history of CHF and COPD. EMS states that the patient was at dialysis today but while there her fistula was infiltrated. The patient reports that she did not receive any of her dialysis treatment today. The patient states that she normally wears 2-3L of oxygen at baseline but does intermittently increase it to 4L when needed. The patient adds that her pulse ox has been steady around the low 90s as of late. The patient states that she is currently in [facility] rehabbing from the flu. The patient relates that her flu symptoms have been improving but she still has a productive cough. She denies any nausea or vomiting. The patient typically has her dialysis treatment on MWF. The patient also has a history of diabetes, Afib with RVR, and an SC. The patient is a former smoker having quit in 2017 after smoking for 55 years. Home Medications Home Medications Medication Instructions Recorded Confirmed Type Breo Ellipta 1 inh INHALATION DAILY 11/21/19 11/24/19 History acetaminophen 650 mg PO Q4H PRN 11/21/19 11/23/19 History acetylcysteine 3 ml INHALATION BID 11/21/19 11/23/19 History albuterol sulfate [Proventil HFA] 2 puff INHALATION Q4H PRN 11/21/19 11/23/19 History atorvastatin [Lipitor] 10 mg PO HS 11/21/19 11/23/19 History ergocalciferol (vitamin D2) 50,000 unit PO 2XWK 11/21/19 11/24/19 History heparin (porcine) 5,000 unit SUBCUT Q12H 11/21/19 11/24/19 History hydrocortisone [Proctozone-HC] 1 applic MD BID 11/21/19 11/24/19 History isosorbide mononitrate 30 mg PO DAILY 11/21/19 11/24/19 History prednisone 20 mg PO DAILY 11/21/19 11/24/19 History alprazolam 0.25 mg PO BID PRN 11/23/19 11/23/19 History bisacodyl 10 mg MD DAILY PRN 11/23/19 11/23/19 History calcium acetate 667 mg PO TIDM 11/23/19 11/24/19 History oxycodone-acetaminophen [Percocet] 1 tab PO Q8H PRN 11/23/19 11/23/19 History Daliresp 500 mcg PO DAILY 11/24/19 11/24/19 History cholecalciferol (vitamin D3) 1,000 unit PO DAILY 11/24/19 11/24/19 History [Vitamin D3] clobetasol 1 applic TOPICAL BID 11/24/19 11/24/19 History darbepoetin gregoria in polysorbat 100 mcg SUBCUT DIRECTED 11/24/19 11/24/19 History docusate sodium 100 mg PO BID 11/24/19 11/24/19 History fluoxetine [Prozac] 40 mg PO DAILY 11/24/19 11/24/19 History levothyroxine 75 mcg PO DAILY 11/24/19 11/24/19 History levothyroxine 300 mcg PO DAILY 11/24/19 11/24/19 History lidocaine 1 applic TOPICAL DIRECTED 11/24/19 11/24/19 History multivitamin 1 tab PO DAILY 11/24/19 11/24/19 History nitroglycerin 0.4 mg SUBLINGUAL DIRECTED PRN 11/24/19 11/24/19 History ondansetron HCl [Zofran] 4 mg PO Q6H PRN 11/24/19 11/24/19 History pantoprazole 40 mg PO DAILY 11/24/19 11/24/19 History polyethylene glycol 3350 [Miralax] 17 g PO DAILY PRN 11/24/19 11/24/19 History rosuvastatin 2.5 mg PO DIRECTED 11/24/19 11/24/19 History sennosides-docusate sodium 1 tab-cap PO DIRECTED 11/24/19 11/24/19 History [Senokot-S] triamcinolone acetonide 1 applic TOPICAL BID 11/24/19 11/24/19 History urea 1 applic TOPICAL BID 11/24/19 11/24/19 History Allergies Allergy/AdvReac Type Severity Reaction Status Date / Time Penicillins Allergy Unknown SWELLING Verified 11/23/19 23:53 AT INJECTION SITE telithromycin Allergy Unknown reaction Verified 11/23/19 23:53 unknown aspirin AdvReac Unknown NAUSEATED Verified 11/23/19 23:53 WITH UNCOATED-COATED OKAY Food Allergy Unknown RAW Uncoded 11/23/19 23:53 [id number] OKAY Past Med/Surg History Medical History Anxiety AV fistula left AV fistula CAD (coronary artery disease) COPD exacerbation Diabetes 1.5, managed as type 2 Encounter for insertion of venous access port ESRD (end stage renal disease) Dialysis patient GERD (gastroesophageal reflux disease) Hepatitis C chronic condition Hypertension goal is 140/90 Hypothyroidism Influenza A Diagnosed 11/13/2019 Mixed dyslipidemia Obesity, BMI not known Old myocardial infarction Oxygen dependent 2 liters nasal cannula Pneumonia Pt is unaware of this diagnosis. Info provided from [facility] Stress incontinence in female Tobacco abuse Surgical History H/O arthroscopy of shoulder Removal of object right shoulder H/O dilation and curettage H/O: Hx of cholecystectomy Hx of decompressive lumbar laminectomy S/P LOUISA-BSO Family History Other Family history non-contributory Social History Preferred Language: Bengali Communication Ability: Effective General Foreman Required: No Beliefs That Will Affect Care: None Current Living Situation: Spouse Other Information That Helps Us Care for You: No Feels Safe at Home: Yes Safety Concerns: Feels Safe At This Time Smoking Status: Unknown if ever smoked Hx Alcohol Use: No Hx Substance Use: No Review of Systems See HPI for pertinent positives & negatives. and A total of 10 systems reviewed and were otherwise negative Physical Exam Vital Signs Vital Signs - 24 hr 11/23/19 23:23 Temperature 98.1 F Temperature Source Oral Pulse Rate 91 H Respiratory Rate 26 H Respiratory Effort / Characteristics Spontaneous SOB on Exertion Respiratory Depth Normal Respiratory Pattern Regular Blood Pressure 141/44 H Blood Pressure Mean 76 Blood Pressure Position Sitting Pulse Oximetry 94 Oxygen Delivery Method Nasal Cannula Oxygen Flow Rate 4 Sepsis Recent Fever Within 48 Hours No Sepsis New/Unexplained Change in Mental Status No Sepsis Action Taken by Nursing No Action Required GENERAL: alert, chronically ill appearing on 4L NC, well nourished, no distress, non-toxic HEAD: Hirutism noted. EYE EXAM: normal conjunctiva, PERRL and EOM's grossly intact OROPHARYNX: no exudate, no erythema, lips, buccal mucosa, and tongue normal and mucous membranes are moist NECK: supple, no nuchal rigidity, no adenopathy, non-tender LUNGS: Bibasilar rales, otherwise diminished bilaterally. Normal chest wall mechanics HEART: no murmurs, S1 normal and S2 normal ABDOMEN: abdomen soft, non-tender, normo-active bowel sounds, no masses, no rebound or guarding. BACK: Back is symmetrical on inspection and there is no deformity, no midline tenderness, no CVA tenderness. SKIN: no rashes and no bruising UPPER EXTREMITIES: upper extremities are grossly normal with the exception of a dressing on the medial aspect of the proximal left upper extremity with no active bleeding or pain. Normal distal pulses bilaterally. LOWER EXTREMITIES: 1+ edema noted. Nml pulses b/l. NEURO EXAM: Normal sensorium, cranial nerves II-XII grossly intact, normal speech, no gross weakness of arms, no gross weakness of legs. Course Course 2334: Past medical records reviewed. The patient was evaluated in room A03, and a complete history and physical examination were performed. 2353: I spoke to Dr. dAalberto Campbell about the patient's case. He said to have the patient hospitalized and he will dialyze her tomorrow. 0109: I spoke to Dr. Sharmaine Costello about the patient's case. He agreed to accept the patient for further evaluation. Consultations Consultation #1: I spoke to Dr. Adalberto Campbell about the patient's case. He said to have the patient hospitalized and he will dialyze her tomorrow. Time: 23:53 Consultation #2: I spoke to Dr. Sharmaine Costello about the patient 's case. He agreed to accept the patient for further evaluation. Time: 01:09 Administered Medications Discontinued Medications Acetaminophen (Tylenol) 325 mg PO Q6H PRN PRN Reason: Pain or Fever Stop: 12/24/19 04:22 Last Admin: 11/24/19 14:17 Dose: 325 mg Documented by: [id number] Admin: 11/24/19 09:44 Dose: 325 mg Documented by: [id number] Acetylcysteine (Mucomyst 20%) 3 ml INH BIDR [facility] Stop: 12/24/19 06:59 Last Admin: 11/25/19 06:49 Dose: 3 ml Documented by: [id number] Admin: 11/24/19 19:00 Dose: 3 ml Documented by: [id number] Admin: 11/24/19 06:59 Dose: 3 ml Documented by: [id number] Albuterol (Duoneb) 3 ml NEB NOW STA Stop: 11/24/19 01:20 Last Admin: 11/24/19 01:35 Dose: 3 ml Documented by: [id number] Alprazolam (Xanax) 0.25 mg PO BID PRN PRN Reason: Anxiety Stop: 12/24/19 04:22 Last Admin: 11/24/19 09:50 Dose: 0.25 mg Documented by: [id number] Atorvastatin Calcium (Lipitor) 10 mg PO HS [facility] Stop: 12/24/19 20:59 Last Admin: 11/24/19 20:52 Dose: 10 mg Documented by: [id number] Calcium Acetate (Phoslo) 667 mg PO TIDM [facility] Stop: 12/24/19 07:59 Last Admin: 11/25/19 11:44 Dose: 667 mg Documented by: [id number] Admin: 11/25/19 08:24 Dose: 667 mg Documented by: [id number] Admin: 11/24/19 16:52 Dose: 667 mg Documented by: [id number] Admin: 11/24/19 13:19 Dose: Not Given Documented by: [id number] Admin: 11/24/19 08:39 Dose: 667 mg Documented by: [id number] Docusate Sodium (Colace) 100 mg PO BID B[facility] Stop: 12/24/19 08:59 Last Admin: 11/25/19 08:27 Dose: 100 mg Documented by: [id number] Admin: 11/24/19 20:52 Dose: 100 mg Documented by: [id number] Admin: 11/24/19 08:40 Dose: 100 mg Documented by: [id number] Fluoxetine HCl (Prozac) 40 mg PO DAILY [facility] Stop: 12/24/19 08:59 Last Admin: 11/25/19 08:25 Dose: 40 mg Documented by: [id number] Admin: 11/24/19 08:40 Dose: 40 mg Documented by: [id number] Fluticasone/Vilanterol (Breo Ellipta 100/25 Mcg Inh) 1 puffs INH DAILY B[facility] Stop: 12/24/19 08:59 Last Admin: 11/25/19 08:22 Dose: 1 puffs Documented by: [id number] Admin: 11/24/19 08:40 Dose: 1 puffs Documented by: [id number] Furosemide (Lasix) 120 mg IV NOW STA Stop: 11/24/19 01:32 Last Admin: 11/24/19 02:54 Dose: 120 mg Documented by: [id number] Gabapentin (Neurontin) 100 mg PO BID BANDAR Stop: 12/24/19 14:44 Last Admin: 11/25/19 08:26 Dose: 100 mg Documented by: [id number] Admin: 11/24/19 20:52 Dose: 100 mg Documented by: [id number] Admin: 11/24/19 14:44 Dose: 100 mg Documented by: [id number] Heparin Sodium (Porcine) (Heparin Sod 100 Unit/Ml Flush) Confirm Administered Dose 5 ml .ROUTE .STK-MED ONE Stop: 11/24/19 08:41 Last Admin: 11/24/19 08:44 Dose: 5 ml Documented by: [id number] Heparin Sodium (Porcine) (Heparin Iv Bolus) 1,000 units IV ONE ONE Stop: 11/24/19 09:16 Last Admin: 11/24/19 14:42 Dose: Not Given Documented by: [id number] Heparin Sodium (Porcine) (Heparin Iv Bolus) 400 units IV Q1H BANDAR Stop: 11/24/19 11:16 Last Admin: 11/24/19 14:43 Dose: Not Given Documented by: [id number] Admin: 11/24/19 14:43 Dose: Not Given Documented by: [id number] Admin: 11/24/19 14:42 Dose: Not Given Documented by: [id number] Heparin Sodium (Porcine) (Heparin Sod 100 Unit/Ml Flush) 5 ml FLUSH PRN PRN PRN Reason: Flush Stop: 12/25/19 00:14 Last Admin: 11/25/19 11:41 Dose: 5 ml Documented by: [id number] Hydralazine HCl (Hydralazine Hcl) 10 mg IV NOW ONE Stop: 11/24/19 02:42 Last Admin: 11/24/19 03:03 Dose: Not Given Documented by: [id number] Hydromorphone HCl (Dilaudid) 0.25 mg IV NOW STA Stop: 11/24/19 01:32 Last Admin: 11/24/19 01:45 Dose: 0.25 mg Documented by: [id number] Hydromorphone HCl (Dilaudid) 0.25 mg IV NOW STA Stop: 11/24/19 03:13 Last Admin: 11/24/19 03:27 Dose: 0.25 mg Documented by: [id number] Hydromorphone HCl (Dilaudid) 0.5 mg IV Q4H PRN PRN Reason: Pain Stop: 12/08/19 04:22 Last Admin: 11/24/19 14:58 Dose: 0.5 mg Documented by: [id number] Admin: 11/24/19 10:22 Dose: 0.5 mg Documented by: [id number] Ertapenem (Invanz) 10 mls @ 2 mls/min IV NOW STA Stop: 11/24/19 01:37 Last Admin: 11/24/19 01:45 Dose: 2 mls/min Documented by: [id number] Magnesium Sulfate/Dextrose (Magnesium Sulfate / D5w) 1 gm in 100 mls @ 100 mls/hr IV Q1H [facility] Stop: 11/24/19 06:22 Last Infusion: 11/24/19 08:45 Dose: 0 mls/hr Documented by: [id number] Admin: 11/24/19 06:10 Dose: 100 mls/hr Documented by: [id number] Infusion: 11/24/19 06:07 Dose: 100 mls/hr Documented by: [id number] Admin: 11/24/19 05:07 Dose: 100 mls/hr Documented by: [id number] Methylprednisolone 20 mg/ (Syringe) 0.32 mls @ 1.5 mls/min IV NOW STA Stop: 11/24/19 05:51 Last Admin: 11/24/19 06:31 Dose: 1.5 mls/min Documented by: [id number] Ertapenem 500 mg/ Sodium (Chloride) 55 mls @ 110 mls/hr IV Q24H BANDAR; Protocol Stop: 11/30/19 21:59 Last Infusion: 11/24/19 22:02 Dose: 0 mls/hr Documented by: [id number] Admin: 11/24/19 21:23 Dose: 110 mls/hr Documented by: [id number] Insulin Aspart (Novolog Flexpen) 0 units SC ACHS [facility] Stop: 12/24/19 04:22 Last Admin: 11/25/19 11:41 Dose: 6 units Documented by: [id number] Cosigned by: [id number] Admin: 11/25/19 08:28 Dose: 1 units Documented by: [id number] Cosigned by: [id number] Admin: 11/24/19 20:53 Dose: 2 units Documented by: [id number] Cosigned by: [id number] Admin: 11/24/19 16:48 Dose: 2 units Documented by: [id number] Cosigned by: [id number] Admin: 11/24/19 12:36 Dose: 2 units Documented by: [id number] Cosigned by: [id number] Admin: 11/24/19 05:37 Dose: 3 units Documented by: [id number] Cosigned by: [id number] Insulin Glargine (Lantus Solostar Pen) 5 units SC DAILY [facility] Stop: 12/25/19 08:59 Last Admin: 11/25/19 08:31 Dose: 5 units Documented by: [id number] Cosigned by: [id number] Insulin Glargine (Lantus Solostar Pen) 5 units SC NOW STA Stop: 11/24/19 04:24 Last Admin: 11/24/19 05:37 Dose: 5 units Documented by: [id number] Cosigned by: [id number] Ipratropium [employer] (Atrovent 0.02% 0.5mg/2.5ml) 0.5 mg INH Q6R [facility] Stop: 12/24/19 06:59 Last Admin: 11/25/19 13:29 Dose: 0.5 mg Documented by: [id number] Admin: 11/25/19 06:48 Dose: 0.5 mg Documented by: [id number] Admin: 11/25/19 00:51 Dose: 0.5 mg Documented by: [id number] Admin: 11/24/19 19:00 Dose: 0.5 mg Documented by: [id number] Admin: 11/24/19 15:06 Dose: 0.5 mg Documented by: [id number] Admin: 11/24/19 13:18 Dose: Not Given Documented by: [id number] Admin: 11/24/19 06:58 Dose: 0.5 mg Documented by: [id number] Isosorbide Mononitrate (Imdur Extended Rel) 30 mg PO NOW ONE Stop: 11/24/19 02:17 Last Admin: 11/24/19 04:55 Dose: 30 mg Documented by: [id number] Isosorbide Mononitrate (Imdur Extended Rel) 30 mg PO DAILY [facility] Stop: 12/25/19 08:59 Last Admin: 11/25/19 08:23 Dose: 30 mg Documented by: [id number] Levalbuterol HCl (Xopenex 1.25mg/0.5ml Neb) 1.25 mg INH Q6R [facility] Stop: 12/24/19 06:59 Last Admin: 11/25/19 13:29 Dose: 1.25 mg Documented by: [id number] Admin: 11/25/19 06:48 Dose: 1.25 mg Documented by: [id number] Admin: 11/25/19 00:51 Dose: 1.25 mg Documented by: [id number] Admin: 11/24/19 19:00 Dose: 1.25 mg Documented by: [id number] Admin: 11/24/19 15:06 Dose: 1.25 mg Documented by: [id number] Admin: 11/24/19 13:19 Dose: Not Given Documented by: [id number] Admin: 11/24/19 06:58 Dose: 1.25 mg Documented by: [id number] [facility] Stop: 12/24/19 06:29 Last Admin: 11/25/19 05:10 Dose: 300 mcg Documented by: [id number] Admin: 11/24/19 05:36 Dose: 300 mcg Documented by: [id number] Levothyroxine Sodium (Synthroid) 75 mcg PO DAILYBB [facility] Stop: 12/24/19 06:29 Last Admin: 11/25/19 05:10 Dose: 75 mcg Documented by: [id number] Admin: 11/24/19 05:36 Dose: 75 mcg Documented by: [id number] Lidocaine (Lidoderm 5%) 1 patch TD QAM [facility] Stop: 12/24/19 03:14 Last Admin: 11/25/19 11:40 Dose: 1 patch Documented by: [id number] Admin: 11/24/19 03:49 Dose: 1 patch Documented by: [id number] Methylprednisolone (Solumedrol) 20 mg IV NOW RUST Stop: 11/24/19 01:23 Last Admin: 11/24/19 01:45 Dose: 20 mg Documented by: [id number] Miscellaneous (Remove Lidoderm Patch) 1 ea N/A DAILY@2100 [facility] Stop: 12/24/19 15:29 Last Admin: 11/24/19 16:01 Dose: 1 ea Documented by: [id number] Multivitamins (Multivitamin Tab) 1 tab PO DAILY [facility] Stop: 12/24/19 08:59 Last Admin: 11/25/19 08:27 Dose: 1 tab Documented by: [id number] Admin: 11/24/19 08:40 Dose: 1 tab Documented by: [id number] Oxycodone/Acetaminophen (Percocet 5mg/325mg) 1 - 2 tab PO Q6H PRN PRN Reason: Severe Pain (Scale Score 7-10) Stop: 12/08/19 04:22 Last Admin: 11/24/19 21:03 Dose: 2 tab Documented by: [id number] Admin: 11/24/19 12:30 Dose: 1 tab Documented by: [id number] Pantoprazole Sodium (Protonix) 40 mg PO DAILY [facility] Stop: 12/24/19 08:59 Last Admin: 11/25/19 08:24 Dose: 40 mg Documented by: [id number] Admin: 11/24/19 08:40 Dose: 40 mg Documented by: [id number] Prednisone (Prednisone) 40 mg PO DAILY [facility] Stop: 12/25/19 08:59 Last Admin: 11/25/19 08:25 Dose: 40 mg Documented by: [id number] Roflumilast (Daliresp) 500 mcg PO DAILY [facility] Stop: 12/24/19 08:59 Last Admin: 11/25/19 08:25 Dose: 500 mcg Documented by: [id number] Admin: 11/24/19 08:40 Dose: 500 mcg Documented by: [id number] Vitamin D (Vitamin D3) 1,000 units PO DAILY [facility] Stop: 12/24/19 08:59 Last Admin: 11/25/19 08:23 Dose: 1,000 units Documented by: [id number] Admin: 11/24/19 08:40 Dose: 1,000 units Documented by: [id number] Medical Decision Making Differential Diagnosis Differential diagnoses includes but is not limited to pneumonia, bronchitis, COPD/Asthma exacerbation, pneumothorax, pulmonary embolism, congestive heart failure, acute coronary syndrome, amongst others. Medical Records Attestation: I reviewed the patient's medical records. Home Medications Current Medication List: was personally reviewed by me Laboratory Data Attestation: I reviewed the patient's lab results. Result diagrams: 11/25/19 06:11 11/25/19 06:11 Lab Results 11/24/19 11/24/19 11/24/19 Range/Units 00:18 00:18 00:18 WBC 9.09 (4.8-10.8) K/uL RBC 3.51 L (4.2-5.4) M/uL Hgb 10.9 L (12.0-16.0) g/dL Hct 34.1 L (37-47) % MCV 97.2 (80-100) fL MCH 31.1 (25-34) pg MCHC 32.0 (32-36) g/dL RDW Std Deviation 63.3 H (36.4-46.3) fL RDW Coeff of Alvin 18.2 H (11.5-14.5) % Plt Count 129 L (130-400) K/uL MPV 10.7 H (7.4-10.4) fL Immature Gran % (Auto) 0.4 % Neut % (Auto) 89.7 % Lymph % (Auto) 4.4 % [place] % (Auto) 5.2 % Eos % (Auto) 0.3 % Baso % (Auto) 0.0 % Immature Gran # (Auto) 0.04 H (0.00-0.02) K/uL Neut # (Auto) 8.15 H (1.4-6.5) K/uL Lymph # (Auto) 0.40 L (1.2-3.4) K/uL [place] # (Auto) 0.47 (0.11-0.59) K/uL Eos # (Auto) 0.03 (0-0.5) K/uL Baso # (Auto) 0.00 (0-0.2) K/uL Sodium 135 L (136-145) mmol/L Potassium 3.9 (3.5-5.1) mmol/L Chloride 103 (98-107) mmol/L Carbon Dioxide 20 L (21-32) mmol/L Anion Gap 12.0 H (3-11) BUN 71 H (7-18) mg/dl Creatinine 5.92 H* (0.6-1.2) mg/dl Est Cr Clr Drug Dosing 9.2 ml/min Est GFR ( Amer) 7.3 Est GFR (Non-Af Amer) 6.3 BUN/Creatinine Ratio 12.1 (10-20) Glucose 152 H (70-99) mg/dl Estimat Average Glucose 140 mg/dl Hemoglobin A1c 6.5 H (4.5-5.6) % Calcium 7.1 L (8.5-10.1) mg/dl Phosphorus 5.0 H (2.5-4.9) mg/dl Magnesium 1.9 (1.8-2.4) mg/dl Total Bilirubin 0.5 (0.2-1) mg/dl AST 15 (15-37) U/L ALT 15 (12-78) U/L Alkaline Phosphatase 79 (45-117) U/L Troponin I 0.024 (0-0.045) ng/ml Total Protein 6.0 L (6.4-8.2) gm/dl Albumin 2.1 L (3.4-5.0) gm/dl Globulin 3.9 (2.5-4.0) gm/dl Albumin/Globulin Ratio 0.5 L (0.9-2) Lipase 192 (73-393) U/L TSH 1.610 (0.300-4.500) uIu/ml Imaging Data Attestation: I personally reviewed and interpreted this imaging study as follows: My Impression: CHEST X-RAY No cardiomegaly, no effusions. Increased interstitial markings bilaterally with the right side greater than the left. Normal mediastinum. ECG Data Attestation: I personally reviewed and interpreted this ECG as follows: Indication: + SOB/dyspnea Rate (beats per minute): 89 Rhythm: + sinus with SA ECG Intervals/blocks: + First degree AV block and + Right Bundle branch block ECG [place]: + Left axis deviation ECG Findings: + LVH Comparison ECG Date: from (10/20/15) Change: no significant change Blood Pressure Blood Pressure Findings: Elevated blood pressure Blood Pressure Disposition: Referred to patients primary care provider RAMÍREZ Narrative Patient brought in today after failed dialysis treatment and worsening shortness of breath over the course of the evening. Patient has known chronic kidney disease on long-term hemodialysis. Patient stated that they were unable to access or complete her treatment via her fistula. Patient's fistula has a dressing in place with no active bleeding. Patient states her breathing was worse over the course the day. Patient does in addition also have known COPD and is on chronic home oxygen. Patient felt the need to turn up her normal amount of oxygen due to her increased trouble breathing. 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 This was discussed with the hospitalist at bedside. No evidence on chest x-ray of other focal consolidation or large pleural effusion. Patient made aware of results. Patient with anemia, elevated creatinine, mild electrolyte abnormalities noted on labs, however these are consistent with her chronic and ongoing medical problems. Impression & Plan Dyspnea, CKD (chronic kidney disease), COPD (chronic obstructive pulmonary disease), Pulmonary edema Discharge Plan Visit Data *Final* Discharge Date/Time: 11/24/19 04:02 Chief Complaint: Shortness of Breath/Dyspnea Stated Complaint: shortness of breath ED Provider: Romina Lam Discharge Problem: Dyspnea, CKD (chronic kidney disease), COPD (chronic obstructive pulmonary disease), Pulmonary edema Patient Disposition: Admitted As Inpatient Discharge Instructions Interventions: ED Discharge Assessment Last Done: 11/24/19 04:02 Discharge Problem: Dyspnea Qualifiers: Dyspnea type: shortness of breath Qualified Code(s): R06.02 - Shortness of breath CKD (chronic kidney disease) Qualifiers: Chronic kidney disease stage: on chronic dialysis Qualified Code(s): N18.6 - End stage renal disease COPD (chronic obstructive pulmonary disease) Qualifiers: COPD type: COPD with acute exacerbation Qualified Code(s): J44.1 - Chronic obstructive pulmonary disease with (acute) exacerbation The scribe's documentation has been prepared under my direction and personally reviewed by me in its entirety. I confirm that the note above accurately reflects all work, treatment, procedures, and medical decision making performed by me.
--- NOTE | 2019-11-25 09:46 | Nephrology Progress Note ---
Date of Service November 25, 2019 Assessment & Plan (1) ESRD (end stage renal disease) on dialysis: Patient with ESRD on dialysis Tuesday. Last full dialysis was on . Dialysis was attempted on 11/23/2019 but her AV fistula infiltrated. Her electrolytes are stable. Main problem is volume overload. She had isolated UF yesterday with a net UF of 3.7 L. AV graft was dysfunctional with low blood flows and frequent alarms. This morning AV graft has no thrill or bruit and appears clotted. I discussed case with the vascular surgeon Dr. Aaron. He is fully booked on Tuesday. He recommended transfer to tertiary center for declotting and most likely tunneled catheter placement. Patient will be transferred to [facility]. I discussed case with the . next dialysis will be on Tuesday. (2) Dyspnea: Patient with dyspnea likely due to pulmonary edema. Chest x-ray was reported as pulmonary vascular congestion and cardiomegaly. Patient with recent influenza but no signs of pneumonia on imaging. Will aggressively diurese her to optimize volume status (3) Malnutrition due to renal disease: Patient has albumin of 2.1 which is very low. Recommend dietitian consultation. Patient should be on a high protein diet. Recommend protein supplements Subjective Patient feels better today. Her breathing is improved. She is complaining of severe pain in the legs. She had isolated UF yesterday but treatment was difficult due to low blood flows from the AV graft. Review of Systems Review of Systems: All systems reviewed & are unremarkable except as noted in HPI & below Physical Exam Physical Exam: General exam: Appears comfortable, no acute distress HEENT: Pupils are equal and reactive to light Neck: No JVD, neck is supple trachea is midline Respiratory system: Reduced breath sounds in the bases bilaterally. Gastrointestinal: Abdomen is soft, non distended, non tender, bowel sounds are present CVS: Regular rate and rhythm. No murmurs, rubs or gallops Musculoskeletal: No joint or muscle tenderness Extremities: Non tender, trace edema, peripheral pulses are present Neuro: Oriented, no tremors, no focal neurological deficits Skin: No rashes Access: Left upper arm AV graft, no thrill or bruit heard today. Results & Data Vital Signs (Past 12 Hours) Vital Signs Temp Pulse Pulse Pulse Resp BP Pulse Ox 11/25/19 07:07 36.5 C 84 18 132/46 L 99 11/25/19 06:53 80 18 97 11/25/19 03:25 36.5 C 79 18 114/50 L 95 11/25/19 00:51 84 16 96 11/24/19 23:23 36.5 C 84 19 144/38 H 98 11/24/19 23:19 84 Laboratory Results 11/25/19 06:11 11/25/19 06:11 WBC 11.05 H RBC 2.85 L MCV 96.8 MCH 30.2 MCHC 31.2 L RDW Std Deviation 64.4 H RDW Coeff of Alvin 18.1 H Plt Count 132 MPV 10.4 (1) Dyspnea Dyspnea type: shortness of breath Qualified Code(s): R06.02 - Shortness of breath
--- NOTE | 2019-11-25 11:04 | Discharge Summary ---
Date of Service November 25, 2019 Admission HPI Per Admitting Provider HPI by admitting physician, Dr. Alphonse Schmid history obtained from patient and records. History somewhat limited due to patient hearing impairment. Medical history significant for chronic respiratory failure secondary to COPD on home O2, history CAD status post CABG, stent, PVD status post surgery, NAFLD cirrhosis as per records, DM2 diet-controlled, ESRD on HD, hypothyroidism, chronic anemia (baseline hemoglobin 8 ), chronic thrombocytopenia, anxiety/mood disorder, chronic left hip pain. Recent confinement [facility] last week for COPD exacerbation secondary to influenza A. Patient discharged to [facility] facility 3 days ago. Outpatient hemoglobin noted to be 6 s/p PRBC transfusion upon arrival at rehab facility. As per patient, worsening shortness of breath since leaving [facility]. Junky cough symptoms, coughing with meals/water intake if she is not careful. No fever, no chills. Worsening left-sided hip pain going to the leg No unusual incontinence symptoms. Hemodialysis not completed yesterday morning due to infiltrated AV fistula site. Patient brought to the ER for worsening shortness of breath. Medical History as above Surgical History : CABG, vascular procedures, cholecystectomy, shoulder surgery, back surgery, LOUISA/BSO, section Admission Exam Per Admitting Provider GENERAL: uncomfortable, obese, respiratory distress SKIN: Pallor , warm HEENT: Pale palpebral conjunctivae, no ptosis, dry buccal mucosa, nasal cannula in place NECK : Supple, short neck, no tenderness CHEST : Decreased breath sounds, expiratory wheezes , no tenderness HEART : RRR, no obvious murmurs ABDOMEN: Some distention, nontender BACK : Left hip tenderness, negative straight leg raise test EXTREMITIES : Minimal LE swelling, no LE tenderness, no other conspicuous deformities noted NEUROLOGIC : Coherent, slightly hard of hearing, no facial asymmetry, no other gross focality Principal Diagnosis Acute on chronic respiratory failure, secondary to fluid overload, ESRD on dialysis Possible healthcare associated pneumonia Chronic respiratory failure secondary to COPD (baseline O2, 2-3L/min) Discharge Exam GENERAL: Elderly female, obese, laying in bed in no acute distress, on 2 L of O2 via nasal cannula HEENT: Normocephalic, trauma, EOMI, PERRL, extremities no gross NECK : Supple, no tenderness CHEST : Diffuse rhonchi and crackles, no accessory muscle use, no wheezing HEART : RRR, no obvious murmurs ABDOMEN positive bowel sounds, soft, obese, nontender, mild distention, no guarding BACK : Left hip tenderness, negative straight leg raise test EXTREMITIES : Minimal LE swelling b/l, moves all 4 extremities spontaneously SKIN: warm, dry, clean dressings over AV graft on her left upper extremity NEUROLOGIC : Alert and oriented, no facial asymmetry, no dysarthria, moves all 4 extremities spontaneously Discharge Data Allergies Allergy/AdvReac Type Severity Reaction Status Date / Time Penicillins Allergy Unknown SWELLING Verified 11/23/19 23:53 AT INJECTION SITE telithromycin Allergy Unknown reaction Verified 11/23/19 23:53 unknown aspirin AdvReac Unknown NAUSEATED Verified 11/23/19 23:53 WITH UNCOATED-COATED OKAY Food Allergy Unknown RAW Uncoded 11/23/19 23:53 [id number] OKAY Consultations 11/24/19 01:06 ED Decision to Admit Stat 11/24/19 04:23 Consult Nephrology Routine Ordered Studies 11/24/19 03:12 CT lumbar spine wo con Urgent FINDINGS: There is a 2.6 cm left adrenal gland nodule. A 2.1 cm hypodense lesion within the left kidney. Paraspinal soft tissues are unremarkable. Posterior decompression at L5-S1. [id number] central canal narrowing at L4-L5 due to broad-based posterior disc bulge and ligamentum and facet hypertrophy. Patchy bibasilar densities are noted. There is severe disc space narrowing at L4-5 and L5-S1. Moderate to severe facet degenerative changes within the lower lumbar spine. No fracture or subluxation within the lumbar spine. IMPRESSION: 1. No fractures within the lumbar spine. 2. Degenerative and postoperative changes as described above. 3. Stable 2.6 cm left adrenal gland nodule. CXR 11/23 FINDINGS: The heart is mildly enlarged. There are poststernotomy changes. There is right greater than left interstitial vascular thickening consistent with pulmonary edema. There is also patchy right basilar airspace opacities. No pneumothorax. No pleural effusions. IMPRESSION: 1. Cardiomegaly with asymmetric pulmonary edema. 2. Patchy right basilar densities may represent a component of the pulmonary edema or superimposed pneumonia. Hospital Course (1) Respiratory failure, acute and chronic: Hx chronic respiratory failure secondary to COPD on home O2 (2-3L/min) Multifactorial : Fluid overload, recent pRBC transfusion, missed dialysis session, hx ESRD on HD Recurrent COPD exacerbation secondary to HCAP, possible aspiration, no sepsis (Recent confinement at [facility] for CF exacerbation secondary to flu pneumonia) Nephrology was consulted upon admission, patient underwent dialysis with UF of 3.7 L, however plan was for UF of 5 L. Patient had difficulty tolerating HD yesterday. However respiratory status much improved now. On my evaluation (Rogelio Durant MD) in the morning of November 24, patient was on 5 to 6 L of O2, which is increased from her baseline of 2 to 3 L. Patient was very uncomfortable and had very loud crackles and rhonchi on physical exam. Currently patient is comfortable, on 2 L of O2 via NC. Unfortunately AV graft seems infiltrated/clotted today (11/25/2019) and therefore I was contacted by nephrology today, November 25, that patient will need vascular access. Vascular surgery not available at [facility] until November 27 and therefore it was recommended that the patient is transferred to tertiary Medical Center. I contacted [facility] in [place], and discussed possible transfer with Dr. Real (medicine). Dr. Rodriguez (vascular surgery) and Dr. Hassan (IR) were contacted. Per our discussion, it seems that patient follows with IR, and so they will be notified about the patient. Dr. Real accepted the patient for transfer. Patient was also started on antibiotic by admitting physician Ertapenem, nebs, steroid course for COPD exacerbation secondary to H CAP/possible aspiration Swallow eval, aspiration precautions Antibiotics were continued Chronic left hip pain, worsening with cough symptoms Analgesia, Lidoderm patch for left hip pain given radiculopathy description CT lumbar spine obtained, does not show any acute abnormalities, no fractures within lumbar spine Patient received gabapentin 100 bid as well as her back and leg pain was bothering her, currently denies any lower extremity pain, but says that her hip continues to bother her. HTN, elevated secondary illness Facilitate home BP meds, consider adding Norvasc if BP persistently elevated Currently BP controlled History of CAD status post CABG, stent PVD status post surgery NAFLD cirrhosis as per records, no overt decompensation DM2 diet-controlled,well-controlled as of recent outpatient hemoglobin A1c of 4.29 April 2019 Basal insulin, ISS BG goal [id number], update hemoglobin A1c Hypothyroidism, euthyroid as of current TSH Chronic anemia, hemoglobin at baseline recent pRBC post transfusion Chronic thrombocytopenia 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 DVT prophylaxis. SCDs RE thrombocytopenia Full code Total Time Total Time Spent Total Time Spent (In Minutes): 50 Total Time Includes: Examination of the Patient, Discharge Planning, Medication Reconciliation and Communication With Other Providers Discharge Plan Discharge Items Patient Disposition: Transfer Acute Care Hospital Reason For Visit: RESP FAILURE Discharge Diagnosis: Acute on chronic respiratory failure, secondary to fluid overload, ESRD on dialysis Possible healthcare associated pneumonia Chronic respiratory failure secondary to COPD (baseline O2, 2-3L/min) Activity: Resume your previous activity Activity Comment: as tolerated Non-emergency contact: Hospitalist Call non-emergency contact if: you have any medication questions and your symptoms worsen Follow-up/Referrals: Trey Guzman V., DO [Primary Care Provider] - Diet: Carb Consistent or DM2, Dialysis Renal and Heart Healthy Addtl Attending Provider Instructions: Patient underwent HD, yesterday, November 24, with UF of 3.7 L, plan was for 5 L. Unfortunately AV graft is currently infiltrated/clotted, and therefore patient is need of vascular access. Vascular surgery is not available at [facility] until Tuesday, and so it was recommended to transfer the patient to tertiary [facility]. Discussed this with Dr. Real (medicine), at [facility] in [place], and Dr. Rodriguez (vascular surgery) and Dr. Hassan (IR) were contacted. Per our discussion, it seems that patient follows with IR, and so they will be notified about the patient. Dr. Real accepted the patient for transfer. Pending Studies at Discharge: No Stand-Alone Forms: My [facility] Skilled Items Patient informed of condition?: Yes DNR: No Discharge Level of Care: Other Communicable Disease: No Discharge Prognosis: Stable Lines: None Urinary Catheter: No Medications and DC Order Prescriptions: Continued acetylcysteine 200 mg/mL (20 %) Solution 3 ml INHALATION BID RF: 0 atorvastatin [Lipitor] 10 mg Tablet 10 mg PO HS RF: 0 prednisone 20 mg Tablet 20 mg PO DAILY RF: 0 isosorbide mononitrate 30 mg Tablet Extended Release 24 Hr 30 mg PO DAILY RF: 0 acetaminophen 650 mg Tablet Extended Release 650 mg PO Q4H PRN (Reason: Pain) RF: 0 hydrocortisone [Proctozone-HC] 2.5 % Cream With Perineal Applicator [address] BID RF: 0 ergocalciferol (vitamin D2) 1,250 mcg (50,000 unit) Capsule 50,000 unit PO 2XWK RF: 0 albuterol sulfate [Proventil HFA] 90 mcg/actuation Hfa Aerosol Inhaler 2 puff INHALATION Q4H PRN (Reason: Wheezing) RF: 0 heparin (porcine) 5,000 unit/mL Syringe 5,000 unit SUBCUT Q12H RF: 0 Breo Ellipta 100-25 mcg/dose Blister With Device 1 inh INHALATION DAILY RF: 0 oxycodone-acetaminophen [Percocet] 5-325 mg Tablet 1 tab PO Q8H PRN (Reason: Severe Pain (Scale Score 7-10)) RF: 0 alprazolam 0.25 mg Tablet 0.25 mg PO BID PRN (Reason: Anxiety) RF: 0 bisacodyl 10 mg Suppository [address] DAILY PRN (Reason: Constipation) RF: 0 calcium acetate 667 mg Capsule 667 mg PO TIDM RF: 0 cholecalciferol (vitamin D3) [Vitamin D3] 2,000 unit Tablet 1,000 unit PO DAILY RF: 0 clobetasol 0.05 % Ointment 1 applic TOPICAL BID RF: 0 darbepoetin gregoria in polysorbat 100 mcg/0.5 mL Syringe 100 mcg subcut DIRECTED RF: 0 docusate sodium 100 mg Capsule 100 mg PO BID RF: 0 sennosides-docusate sodium [Senokot-S] 8.6-50 mg Tablet 1 tab-cap PO DIRECTED RF: 0 fluoxetine [Prozac] 40 mg Capsule 40 mg PO DAILY RF: 0 levothyroxine 150 mcg Tablet 300 mcg PO DAILY RF: 0 levothyroxine 75 mcg Tablet 75 mcg PO DAILY RF: 0 lidocaine 5 % Ointment 1 applic TOPICAL DIRECTED RF: 0 multivitamin Tablet 1 tab PO DAILY RF: 0 nitroglycerin 0.4 mg Tablet, Sublingual 0.4 mg sublingual DIRECTED PRN (Reason: Chest Pain) RF: 0 ondansetron HCl [Zofran] 4 mg Tablet 4 mg PO Q6H PRN (Reason: n/v) RF: 0 pantoprazole 40 mg Tablet,Delayed Release (Dr/Ec) 40 mg PO DAILY RF: 0 polyethylene glycol 3350 [Miralax] 17 gram Powder In Packet 17 g PO DAILY PRN (Reason: Constipation) RF: 0 Daliresp 500 mcg Tablet 500 mcg PO DAILY RF: 0 rosuvastatin 5 mg Tablet 2.5 mg PO DIRECTED RF: 0 triamcinolone acetonide 0.1 % Ointment 1 applic TOPICAL BID RF: 0 urea 40 % Cream 1 applic TOPICAL BID RF: 0 Discharge Orders: Discharge Order (Routine); Ordered 11/25/19 Ordered By: Ector Li/Other Patient Handouts: A1C Admission Data Admit Date/Time: 11/24/19 03:21 Attending Provider: Ector Durant Admit Provider: Alphonse Schmid Primary Care Provider: Trey Guzman V. Other Providers: Alphonse Schmid ; Erick Glover
[2019-11-25] MEDS: LIDOCAINE 5% 1 PATCH TD SCH (11:40)
[2019-11-26] MEDS ORDERED: ROSUVASTATIN CALCIUM 5 MG TAB PO SCH (09:00)
[2019-11-26] MEDS ORDERED: ERGOCALCIFEROL 50,000 UNITS CAP PO SCH (09:00)
== END 2019-11-25 15:43 | disposition short-term general hospital (02) | DRG 682 ==
LOC: ED 23:31 → 2E 11-24 03:21 → OBSVTOIN 11-24 03:21 → INTOOBSV 11-24 03:21 → 2E 11-24 04:02